=== PATIENT | female | born 1960 | race Caucasian/White ===

== ENCOUNTER 2018-09-29 16:38 | Emergency (ER) | payer BC ==
--- NOTE | 2018-09-29 18:21 | ER Document Report ---
ED Medical Screen (RME) - General Chief Complaint: Abdominal Pain Stated Complaint: SIDE PAIN Time Seen by Provider: 09/29/18 18:17 Notes: 58-year-old female patient reports onset Thursday of severe right lower quadrant abdominal pain. She states it has gotten a little bit better. Thursday it was extremely painful to move around or walk at all. She also reports an umbilical region discharge, and some nausea. She also reports a head cold and upper respiratory tract infection type symptoms. I have greeted and performed a rapid initial assessment of this patient. A comprehensive ED assessment and evaluation of the patient, analysis of test results and completion of the medical decision making process will be conducted by additional ED providers. - Related Data Allergies/Adverse Reactions: levofloxacin [From Levaquin] Allergy (Verified 09/29/18 16:40) morphine Allergy (Verified 09/29/18 16:40) Sulfa (Sulfonamide Antibiotics) Allergy (Verified 09/29/18 16:40) Past Medical History - Social History Chew tobacco use (# tins/day): No Frequency of alcohol use: None Drug Abuse: None - Past Medical History Cardiac Medical History: Reports: Hx Hypercholesterolemia Pulmonary Medical History: Reports: Hx COPD Renal/ Medical History: Denies: Hx Peritoneal Dialysis Past Surgical History: Reports: Hx Abdominal Surgery, Hx Cholecystectomy, Hx Orthopedic Surgery Physical Exam - Vital signs Vitals: Temp Pulse Resp BP Pulse Ox 98.7 F 77 18 137/85 H 97 09/29/18 16:48 09/29/18 16:48 09/29/18 16:48 09/29/18 16:48 09/29/18 16:48 Course - Vital Signs Vital signs: Temp Pulse Resp BP Pulse Ox 98.7 F 77 18 137/85 H 97 09/29/18 16:48 09/29/18 16:48 09/29/18 16:48 09/29/18 16:48 09/29/18 16:48
--- NOTE | 2018-09-29 19:28 | ER Document Report ---
ED General - General Chief Complaint: Abdominal Pain Stated Complaint: SIDE PAIN Time Seen by Provider: 09/29/18 18:17 Mode of Arrival: Ambulatory Information source: Patient, [facility] Records Notes: 58-year-old female with hypertension, COPD presents with complaint of right lower quadrant pain that started 2 days prior to arrival. Patient describes the pain as stabbing, intermittent and worse with movement. She denies any associated nausea, vomiting. Her last bowel movement was yesterday. Patient describes the bowel movement as strenuous, hard and scant. Patient has surgical history of ovarian cyst removal, cholecystectomy. Patient reports chronic chest pain, chronic shortness of breath due to tobacco use, recent illness which included nasal congestion, cough. She denies previous history of kidney stones, dysuria, hematuria, vaginal discharge. - HPI Onset: Other Onset/Duration: Persistent, Worse Quality of pain: Stabbing Severity: Moderate Pain Level: 2 Associated symptoms: Chest pain - Chronic, Productive cough, Rhinnorhea, Shortness of breath - Chronic. denies: Fever, Nausea, Vomiting Exacerbated by: Movement Relieved by: Denies Similar symptoms previously: No Recently seen / treated by doctor: No - Related Data Allergies/Adverse Reactions: levofloxacin [From Levaquin] Allergy (Verified 09/29/18 16:40) morphine Allergy (Verified 09/29/18 16:40) Sulfa (Sulfonamide Antibiotics) Allergy (Verified 09/29/18 16:40) Past Medical History - General Information source: Patient - Social History Smoking Status: Current Every Day Smoker Cigarette use (# per day): Yes - 15 Chew tobacco use (# tins/day): No Smoking Education Provided: Yes - Smoking cessation counseling was provided for 4 minutes at the bedside Frequency of alcohol use: None Drug Abuse: None Lives with: Family Family History: Reviewed & Not Pertinent Patient has suicidal ideation: No Patient has homicidal ideation: No - Past Medical History Cardiac Medical History: Reports: Hx Hypercholesterolemia Pulmonary Medical History: Reports: Hx COPD Renal/ Medical History: Denies: Hx Peritoneal Dialysis Past Surgical History: Reports: Hx Abdominal Surgery, Hx Cholecystectomy, Hx Orthopedic Surgery Review of Systems - Review of Systems Notes: REVIEW OF SYSTEMS: CONSTITUTIONAL : Denies fever, chills, or sweats. Denies weight loss, recent hospitalizations. EENT: Denies visual changes, eye pain. Denies sore throat, oral lesions, difficulty swallowing. CARDIOVASCULAR: Denies palpitations. Denies lower extremity edema. RESPIRATORY: Denies cough. Denies wheezing. GASTROINTESTINAL: Denies distention. Denies nausea, vomiting, or diarrhea. Denies blood in vomitus, stools, or per rectum. Denies black, tarry stools. Denies constipation. GENITOURINARY: Denies difficulty urinating, painful urination, frequency, blood in urine, or vaginal discharge. MUSCULOSKELETAL: Denies back or neck pain or stiffness. Denies joint pain or swelling. SKIN: Denies rash, lesions or sores. HEMATOLOGIC : Denies easy bruising or bleeding. LYMPHATIC: Denies swollen glands. NEUROLOGICAL: Denies confusion or altered mental status. Denies loss of consciousness. Denies dizziness or lightheadedness. Denies headache. Denies weakness or paralysis. Denies problems difficulty with ambulation, slurred speech. Denies sensory loss, numbness, or tingling. Denies seizures. PSYCHIATRIC: Denies anxiety or stress. Denies depression, suicidal ideation, or homicidal ideation. Denies visual or auditory hallucinations. Physical Exam - Vital signs Vitals: Temp Pulse Resp BP Pulse Ox 98.7 F 77 18 137/85 H 97 09/29/18 16:48 09/29/18 16:48 09/29/18 16:48 09/29/18 16:48 09/29/18 16:48 - Notes Notes: PHYSICAL EXAMINATION: GENERAL: Well-appearing, well-nourished and in no acute distress. HEAD: Atraumatic, normocephalic. EYES: Pupils equal round and reactive to light, extraocular movements intact, conjunctiva are normal. ENT: Nares patent, oropharynx clear without exudates. Moist mucous membranes. NECK: Normal range of motion, supple without lymphadenopathy LUNGS: Breath sounds clear to auscultation bilaterally and equal. No wheezes rales or rhonchi. HEART: Regular rate and rhythm without murmurs ABDOMEN: Tenderness to palpation in the right lower quadrant. No guarding, no rebound. No masses appreciated. Female : deferred Musculoskeletal: Normal range of motion, no pitting or edema. No cyanosis. NEUROLOGICAL: Cranial nerves grossly intact. Normal speech, normal gait. Normal sensory, motor exams PSYCH: Normal mood, normal affect. SKIN: Warm, Dry, normal turgor, no rashes or lesions noted. Course - Re-evaluation Re-evalutation: 09/30/18 03:43 Laboratory 09/29/18 09/29/18 09/29/18 19:07 19:50 19:50 WBC 6.1 RBC 4.75 Hgb 15.0 Hct 43.3 MCV 91 MCH 31.6 MCHC 34.8 RDW 14.2 H Plt Count 190 Seg Neutrophils % 46.6 Lymphocytes % 38.9 Monocytes % 9.5 Eosinophils % 4.5 Basophils % 0.5 Absolute Neutrophils 2.8 Absolute Lymphocytes 2.4 Absolute Monocytes 0.6 Absolute Eosinophils 0.3 Absolute Basophils 0.0 Sodium 139.1 Potassium 4.1 Chloride 103 Carbon Dioxide 27 Anion Gap 9 BUN 11 Creatinine 0.57 Est GFR ( Amer) > 60 Est GFR (Non-Af Amer) > 60 Glucose 91 Calcium 9.5 Total Bilirubin 0.3 Direct Bilirubin 0.2 Neonat Total Bilirubin Not Reportable Neonat Direct Bilirubin Not Reportable Neonat Indirect Bili Not Reportable AST 24 ALT 20 Alkaline Phosphatase 76 Total Protein 6.6 Albumin 4.2 Urine Color YELLOW Urine Appearance SLIGHTLY-CLOUDY Urine pH 5.0 Ur Specific [employer] [place] 1.009 Urine Protein NEGATIVE Urine Glucose (UA) NEGATIVE Urine Ketones NEGATIVE Urine Blood NEGATIVE Urine Nitrite NEGATIVE Urine Bilirubin NEGATIVE Urine Urobilinogen NEGATIVE Ur Leukocyte Esterase TRACE H Urine WBC (Auto) 4 Urine RBC (Auto) 1 Squamous Epi Cells Auto 4 Urine Mucus (Auto) RARE Urine Ascorbic Acid NEGATIVE Limited or Localized CT 09/29/18 18:20 IMPRESSION: Negative for acute intra-abdominal/pelvic process. TECHNICAL DOCUMENTATION: Quality ID # 436: Final reports with documentation of one or more dose reduction techniques (e.g., Automated exposure control, adjustment of the mA and/or kV according to patient size, use of iterative reconstruction technique) copyright 2011 [employer]- All Rights Reserved Temp Pulse Resp BP Pulse Ox 98.5 F 78 18 140/0 H 98 09/29/18 21:30 09/29/18 21:30 09/29/18 21:30 09/29/18 21:30 09/29/18 21:30 58-year-old female with hypertension, COPD presents with complaint of right lower quadrant pain that started 2 days prior to arrival. Patient describes the pain as stabbing, intermittent and worse with movement. She denies any associated nausea, vomiting. Her last bowel movement was yesterday. Patient describes the bowel movement as strenuous, hard and scant. Patient has surgical history of ovarian cyst removal, cholecystectomy. Vital signs reviewed and within normal limits upon arrival. Patient does not appear toxic or dehydrated. She is in no acute distress. Previous medical records and nursing notes reviewed. CBC, CMP, urinalysis are unremarkable. CT of the abdomen and pelvis show no evidence of urolithiasis, appendicitis, bowel obstruction but does show a moderate amount of stool burden. Patient provided mag citrate, Zofran. Patient was evaluated and treated as appropriate for the patient's presenting symptoms and complaint, with consideration of any critical or life threatening conditions that may be associated with their obtained history and exam as noted above. All results were discussed with patient. Patient provided the opportunity to ask questions, and express concerns. Patient was educated on treatments based on their presumed diagnosis as noted above. At this time we will discharge the patient with return precautions and follow-up recommendations. Verbal discharge instructions given a the bedside. Medication warnings reviewed. Patient is in agreement with this plan and has verbalized understanding of return precautions. After careful consideration I feel that that patient can be safely discharged from the emergency department, they were advised to followup with a primary care physician in 2-3 days. Dictation on this chart was performed using voice recognition software and may result in unintended grammatical, spelling, syntax or errors. 09/30/18 03:44 - Vital Signs Vital signs: Temp Pulse Resp BP Pulse Ox 98.5 F 78 18 140/0 H 98 09/29/18 21:30 09/29/18 21:30 09/29/18 21:30 09/29/18 21:30 09/29/18 21:30 - Laboratory Result Diagrams: 09/29/18 19:50 09/29/18 19:50 Laboratory results interpreted by me: 09/29/18 09/29/18 19:07 19:50 RDW 14.2 H Ur Leukocyte Esterase TRACE H - Diagnostic Test Radiology reviewed: Image reviewed, Reports reviewed Discharge - Discharge Clinical Impression: Right lower quadrant abdominal pain, Elevated blood pressure reading Constipation Qualifiers: Constipation type: unspecified constipation type Qualified Code(s): K59.00 - Constipation, unspecified Condition: Good Disposition: HOME, SELF-CARE Instructions: Abdominal Pain ([facility]), Bulk Laxatives, Constipation ([facility]), Observation for Appendicitis ([facility]) Prescriptions: Polyethylene Glycol 3350 [Miralax Powder 17 gm/Packet] 1 packet PO DAILY #10 pkg Forms: Return to Work
[2018-09-29 19:41] LABS: APPEARANCE,URINE SLIGHTLY-CLOUDY; BILIRUBIN,URINE NEGATIVE (NEGATIVE); COLOR,URINE YELLOW; GLUCOSE, URINE NEGATIVE (NEGATIVE); KETONES,URINE NEGATIVE (NEGATIVE); LEUKOCYTE ESTERASE,URINE TRACE (NEGATIVE); NITRITE,URINE NEGATIVE (NEGATIVE); PROTEIN,URINE NEGATIVE (NEGATIVE); URINE SPECIFIC GRAVITY 1.009; UROBILINOGEN,URINE NEGATIVE mg/dL (<2.0)
[2018-09-29 20:05] LABS: ABSOLUTE EOSINOPHILS # (AUTO) 0.3 10^3/uL (0.0-0.6); ABSOLUTE LYMPHOCYTES (AUTO) 2.4 10^3/uL (0.5-4.7); ABSOLUTE MONOCYTES (AUTO) 0.6 10^3/uL (0.1-1.4); ABSOLUTE NEUT (AUTO) 2.8 10^3/uL (1.7-8.2); BASOPHILS % (AUTO) 0.5 % (0-2); EOSINOPHILS % (AUTO) 4.5 % (0-6); HEMATOCRIT 43.3 % (36.0-47.0); LYMPHOCYTES % (AUTO) 38.9 % (13-45); MEAN CORPUSCULAR HEMOGLOBIN 31.6 pg (27.0-33.4); MEAN CORPUSCULAR HGB CONC 34.8 g/dL (32.0-36.0); MEAN CORPUSCULAR VOLUME 91 fl (80-97); MONOCYTES % (AUTO) 9.5 % (3-13); PLATELET COUNT 190 10^3/uL (150-450); RED BLOOD COUNT 4.75 10^6/uL (3.72-5.28); RED CELL DISTRIBUTION WIDTH 14.2 % (11.5-14.0); SEGMENTED NEUTROPHILS % (AUTO) 46.6 % (42-78); TOTAL CELLS COUNTED % (AUTO) 100 %; WHITE BLOOD COUNT 6.1 10^3/uL (4.0-10.5)
[2018-09-29] MEDS ORDERED: KETOROLAC TROMETHAMINE INJ/PF 30 MG/1 ML SDV IV ONE (20:12)
--- NOTE | 2018-09-29 20:27 | RADIOLOGY REPORT (SQ) ---
EXAM DESCRIPTION: CT ABDOMEN WITHOUT IV CONTRAST COMPLETED DATE/TME: 09/29/2018 18:20 CLINICAL HISTORY: 58 years, Female, Right lower quadrant abdominal pain COMPARISON: None. TECHNIQUE: 336 Images stored on PACS. All CT scanners at this facility use dose modulation, iterative reconstruction, and/or weight based dosing when appropriate to reduce radiation dose to as low as reasonably achievable (ALARA). [facility]: Dose Right [facility]: CareDose [facility]: Dose Right [facility]: Teradose 4D [facility]: [employer] LIMITATIONS: None. FINDINGS: Limited evaluation of the lung bases is unremarkable. Osseous structures are grossly intact. The visualized liver, spleen, adrenal glands, pancreas are unremarkable. Status post cholecystectomy. Urinary bladder is not distended, limiting its evaluation. Normal appendix. No gross evidence for bowel obstruction. Negative for urinary tract calculus or hydronephrosis. Probable extrarenal pelves bilaterally. Moderate stool throughout colon. Moderate atheromatous change. IMPRESSION: Negative for acute intra-abdominal/pelvic process. TECHNICAL DOCUMENTATION: Quality ID # 436: Final reports with documentation of one or more dose reduction techniques (e.g., Automated exposure control, adjustment of the mA and/or kV according to patient size, use of iterative reconstruction technique) copyright 2010 [employer]- All Rights Reserved
[2018-09-29 20:28] LABS: ALANINE AMINOTRANSFERASE 20 U/L (9-52); ALBUMIN 4.2 g/dL (3.5-5.0); ALKALINE PHOSPHATASE 76 U/L (38-126); ANION GAP 9 (5-19); ASPARTATE AMINO TRANSFERASE 24 U/L (14-36); BILIRUBIN,DIRECT 0.2 mg/dL (0.0-0.4); BILIRUBIN,TOTAL 0.3 mg/dL (0.2-1.3); BLOOD UREA NITROGEN 11 mg/dL (7-20); CALCIUM 9.5 mg/dL (8.4-10.2); CARBON DIOXIDE 27 mmol/L (22-30); CHLORIDE 103 mmol/L (98-107); GLUCOSE 91 mg/dL (75-110); POTASSIUM 4.1 mmol/L (3.6-5.0); SODIUM 139.1 mmol/L (137-145); TOTAL PROTEIN 6.6 g/dL (6.3-8.2)
[2018-09-29] MEDS ORDERED: MAGNESIUM CITRATE 296 ML BOTTLE PO ONE (21:12)
[2018-09-29 21:32] VITALS: BP 140/0
== END 2018-09-29 20:28 | disposition home or self-care (01) ==
LOC: ER 16:38
DX: K59.00 Constipation, unspecified (principal); R10.31 Right lower quadrant pain; I10 Essential (primary) hypertension; J34.89 Other specified disorders of nose and nasal sinuses; R09.81 Nasal congestion; R07.9 Chest pain, unspecified; J44.9 Chronic obstructive pulmonary disease, unspecified; F17.210 Nicotine dependence, cigarettes, uncomplicated; R05 Cough; R06.02 Shortness of breath; Z88.2 Allergy status to sulfonamides; Z90.49 Acquired absence of other specified parts of digestive tract; Z87.42 Personal history of other diseases of the female genital tract; Z88.1 Allergy status to other antibiotic agents; Z88.5 Allergy status to narcotic agent
CPT/HCPCS: 99284; 96374; 36415; 85025; 80053; 81001; 76380; J3490; J1885

== ENCOUNTER 2019-02-15 08:30 | Observation (INO) | payer BC ==
[2019-02-15] MEDS ORDERED: ASPIRIN 81 MG TABLET, CHEWABLE PO ONE (10:02)
--- NOTE | 2019-02-15 10:06 | ER Document Report ---
ED Cardiac - General Chief Complaint: Chest Pain Stated Complaint: CHEST PAIN Time Seen by Provider: 02/15/19 09:00 Notes: 58-year-old female patient, smoker to the emergency department chief complaint of chest pain radiating to her back. Patient states that yesterday she debate developed a achiness in her back and radiated to the front of her chest. Describes it as a fullness in her chest. Had some nausea associated with that as well. No vomiting. This has persisted today. Patient states that she feels completely wiped out. No prior history of blood clots or DVTs or pulmonary rhythm. Strong family history of heart disease. TRAVEL OUTSIDE OF THE [place] IN LAST 30 DAYS: No - HPI Patient complains to provider of: Chest pain, Chest tightness Was the onset of pain: Gradual Chest pain location: Substernal, Back Quality of pain: Intermittent Chest pain radiation location: Back Severity now: Moderate Severity at worst: Moderate Pain level currently: 3 - Related Data Allergies/Adverse Reactions: levofloxacin [From Levaquin] Allergy (Verified 02/15/19 08:36) morphine Allergy (Verified 02/15/19 08:36) Sulfa (Sulfonamide Antibiotics) Allergy (Verified 02/15/19 08:36) Past Medical History - General Information source: Patient - Social History Smoking Status: Current Every Day Smoker Frequency of alcohol use: None Drug Abuse: Marijuana Lives with: Family Family History: Reviewed & Not Pertinent Patient has suicidal ideation: No Patient has homicidal ideation: No - Past Medical History Cardiac Medical History: Reports: Hx Hypercholesterolemia Pulmonary Medical History: Reports: Hx COPD Renal/ Medical History: Denies: Hx Peritoneal Dialysis Past Surgical History: Reports: Hx Abdominal Surgery, Hx Cholecystectomy, Hx Orthopedic Surgery Review of Systems - Review of Systems Notes: Constitutional: denies: Chills, Diaphoresis, Fever, Malaise, Weakness EENT: denies: Eye discharge, Blurred vision, Tearing, Double vision, Nose congestion, Nose discharge, Throat swelling, Mouth pain Cardiovascular: denies: Palpitations, Heart racing, Orthopnea, Dyspnea, +Chest pain Respiratory: denies: Cough, Hurts to breathe, Wheezing, Shortness of breath Gastrointestinal: denies: Abdominal pain, Diarrhea, +Nausea, -Vomiting, Black stools, bright red blood in stool Genitourinary: denies: Burning, Dysuria, Discharge, Frequency, Flank pain, Hematuria Musculoskeletal: denies: Joint pain, Joint swelling, Muscle pain, Muscle stiffness, +back pain Hematologic/Lymphatic: denies: Anemia, Easy bleeding, Easy bruising, Blood clots Neurological/Psychological: denies: Confusion, Dementia, Depression, Loss of consciousness Skin: No lesions, no masses, no skin breakdown, no abscesses Physical Exam - Vital signs Vitals: Temp Pulse Resp BP Pulse Ox 98.1 F 69 18 151/86 H 98 02/15/19 08:51 02/15/19 08:51 02/15/19 08:51 02/15/19 08:51 02/15/19 08:51 Interpretation: Normal - General General appearance: Appears well, Alert - HEENT Head: Normocephalic, Atraumatic Eyes: Normal Pupils: PERRL - Respiratory Respiratory status: No respiratory distress Chest status: Nontender Breath sounds: Normal Chest palpation: Normal - Cardiovascular Rhythm: Regular Heart sounds: Normal auscultation Murmur: No - Abdominal Inspection: Normal Distension: No distension Bowel sounds: Normal Tenderness: Nontender Organomegaly: No organomegaly - Back Back: Normal, Nontender - Extremities General upper extremity: Normal inspection, Nontender, Normal color, Normal ROM, Normal temperature General lower extremity: Normal inspection, Nontender, Normal color, Normal ROM, Normal temperature, Normal weight bearing. No: Alyssa's sign - Neurological Neuro grossly intact: Yes Cognition: Normal Orientation: AAOx4 Anthony Coma Scale Eye Opening: Spontaneous Anthony Coma Scale Verbal: Oriented Anthony Coma Scale Motor: Obeys Commands [place] Coma Scale Total: 15 Speech: Normal Motor strength normal: LUE, RUE, LLE, RLE Sensory: Normal - Psychological Associated symptoms: Normal affect, Normal mood - Skin Skin Temperature: Warm Skin Moisture: Dry Skin Color: Normal Course - Re-evaluation Re-evalutation: 02/15/19 12:22 Laboratory 02/15/19 02/15/19 02/15/19 10:21 10:21 10:21 WBC 6.7 RBC 5.01 Hgb 15.4 Hct 44.6 MCV 89 MCH 30.7 MCHC 34.4 RDW 13.9 Plt Count 220 Seg Neutrophils % 48.7 Lymphocytes % 41.2 Monocytes % 6.3 Eosinophils % 3.1 Basophils % 0.7 Absolute Neutrophils 3.3 Absolute Lymphocytes 2.7 Absolute Monocytes 0.4 Absolute Eosinophils 0.2 Absolute Basophils 0.0 Sodium Cancelled Potassium Cancelled Chloride Cancelled Carbon Dioxide Cancelled Anion Gap Cancelled BUN Cancelled Creatinine Cancelled Est GFR ( Amer) Cancelled Est GFR (Non-Af Amer) Cancelled Glucose Cancelled Calcium Cancelled Total Bilirubin Cancelled Direct Bilirubin Cancelled Neonat Total Bilirubin Cancelled Neonat Direct Bilirubin Cancelled Neonat Indirect Bili Cancelled AST Cancelled ALT Cancelled Alkaline Phosphatase Cancelled Creatine Kinase Cancelled CK-MB (CK-2) Cancelled Troponin I Cancelled Total Protein Cancelled Albumin Cancelled 02/15/19 11:40 WBC RBC Hgb Hct MCV MCH MCHC RDW Plt Count Seg Neutrophils % Lymphocytes % Monocytes % Eosinophils % Basophils % Absolute Neutrophils Absolute Lymphocytes Absolute Monocytes Absolute Eosinophils Absolute Basophils Sodium 143.5 Potassium 4.1 Chloride 106 Carbon Dioxide 28 Anion Gap 10 BUN 11 Creatinine 0.60 Est GFR ( Amer) > 60 Est GFR (Non-Af Amer) > 60 Glucose 99 Calcium 9.9 Total Bilirubin 0.4 Direct Bilirubin 0.2 Neonat Total Bilirubin Not Reportable Neonat Direct Bilirubin Not Reportable Neonat Indirect Bili Not Reportable AST 24 ALT 27 Alkaline Phosphatase 84 Creatine Kinase 35 CK-MB (CK-2) Troponin I Total Protein 7.1 Albumin 4.0 Chest X-Ray 02/15/19 10:02 IMPRESSION: NO ACUTE RADIOGRAPHIC FINDING IN THE CHEST. 02/15/19 12:25 This is a 58-year-old female patient with a heart score of 4 complaining of chest tightness that radiates to her back. She is a smoker, hypertensive, h yperlipidemia with positive family history. With a heart score for she would more likely deserve a rule out. Will consult with the hospitalist at this time for repeat evaluation and admit 02/15/19 12:57 - Vital Signs Vital signs: Temp Pulse Resp BP Pulse Ox 98.1 F 69 13 134/76 H 96 02/15/19 08:51 02/15/19 08:51 02/15/19 12:01 02/15/19 12:01 02/15/19 12:01 - Laboratory Result Diagrams: 02/15/19 10:21 02/15/19 11:40 - EKG Interpretation by [place] EKG shows normal: Sinus rhythm, [place], Intervals, QRS Complexes, ST-T Waves Discharge - Discharge Clinical Impression: Chest pain Qualifiers: Chest pain type: unspecified Qualified Code(s): R07.9 - Chest pain, unspecified Condition: Good Disposition: ADMITTED OBSERVATION Admitting Provider: Cortney (Hospitalist) Unit Admitted: Telemetry
[2019-02-15 10:31] LABS: ABSOLUTE EOSINOPHILS # (AUTO) 0.2 10^3/uL (0.0-0.6); ABSOLUTE LYMPHOCYTES (AUTO) 2.7 10^3/uL (0.5-4.7); ABSOLUTE MONOCYTES (AUTO) 0.4 10^3/uL (0.1-1.4); ABSOLUTE NEUT (AUTO) 3.3 10^3/uL (1.7-8.2); BASOPHILS % (AUTO) 0.7 % (0-2); EOSINOPHILS % (AUTO) 3.1 % (0-6); HEMATOCRIT 44.6 % (36.0-47.0); HEMOGLOBIN 15.4 g/dL (12.0-15.5); LYMPHOCYTES % (AUTO) 41.2 % (13-45); MEAN CORPUSCULAR HEMOGLOBIN 30.7 pg (27.0-33.4); MEAN CORPUSCULAR HGB CONC 34.4 g/dL (32.0-36.0); MEAN CORPUSCULAR VOLUME 89 fl (80-97); MONOCYTES % (AUTO) 6.3 % (3-13); PLATELET COUNT 220 10^3/uL (150-450); RED BLOOD COUNT 5.01 10^6/uL (3.72-5.28); RED CELL DISTRIBUTION WIDTH 13.9 % (11.5-14.0); SEGMENTED NEUTROPHILS % (AUTO) 48.7 % (42-78); TOTAL CELLS COUNTED % (AUTO) 100 %; WHITE BLOOD COUNT 6.7 10^3/uL (4.0-10.5)
--- NOTE | 2019-02-15 10:51 | RADIOLOGY REPORT (SQ) ---
EXAM DESCRIPTION: CHEST SINGLE VIEW COMPLETED DATE/TIME: 02/15/2019 10:37 am REASON FOR STUDY: chest pain COMPARISON: None. EXAM PARAMETERS: NUMBER OF VIEWS: One view. TECHNIQUE: Single frontal radiographic view of the chest acquired. RADIATION DOSE: NA LIMITATIONS: None. FINDINGS: LUNGS AND PLEURA: No opacities, masses or pneumothorax. No pleural effusion. MEDIASTINUM AND HILAR STRUCTURES: No masses. Contour normal. HEART AND VASCULAR STRUCTURES: Heart normal in size. Normal vasculature. BONES: No acute findings. HARDWARE: None in the chest. OTHER: No other significant finding. IMPRESSION: NO ACUTE RADIOGRAPHIC FINDING IN THE CHEST. TECHNICAL DOCUMENTATION: JOB ID: [id number] [email or web address]- All Rights Reserved Reading location - IP/workstation name: [email or web address]
[2019-02-15] MEDS ORDERED: ASPIRIN 81 MG TABLET, CHEWABLE ONE (11:50)
[2019-02-15] MEDS ORDERED: KETOROLAC TROMETHAMINE INJ/PF 30 MG/1 ML SDV IV ONE (11:52)
[2019-02-15 12:07] LABS: ALANINE AMINOTRANSFERASE 27 U/L (9-52); ALKALINE PHOSPHATASE 84 U/L (38-126); ANION GAP 10 (5-19); ASPARTATE AMINO TRANSFERASE 24 U/L (14-36); BILIRUBIN,DIRECT 0.2 mg/dL (0.0-0.4); BILIRUBIN,TOTAL 0.4 mg/dL (0.2-1.3); BLOOD UREA NITROGEN 11 mg/dL (7-20); CALCIUM 9.9 mg/dL (8.4-10.2); CARBON DIOXIDE 28 mmol/L (22-30); CHLORIDE 106 mmol/L (98-107); CREATINE KINASE 35 U/L (30-135); GLUCOSE 99 mg/dL (75-110); POTASSIUM 4.1 mmol/L (3.6-5.0); SODIUM 143.5 mmol/L (137-145); TOTAL PROTEIN 7.1 g/dL (6.3-8.2)
[2019-02-15 12:19] LABS: CREATINE KINASE MB 0.48 ng/mL (<4.55)
[2019-02-15 12:26] LABS: TROPONIN I < 0.012 ng/mL
--- NOTE | 2019-02-15 12:47 | EKG REPORT ---
SEVERITY:- ABNORMAL ECG - SINUS RHYTHM FIRST DEGREE AV BLOCK BORDERLINE LEFT AXIS DEVIATION BORDERLINE R WAVE PROGRESSION, ANTERIOR LEADS : Confirmed by: Vivek Webb MD 15-Feb-2019 12:46:28
[2019-02-15] MEDS ORDERED: ONDANSETRON 4 MG TAB.RAPDIS PO PRN (14:00)
[2019-02-15] MEDS ORDERED: ACETAMINOPHEN SOLN 325 MG/10.15 ML UDCUP PO PRN (14:50)
[2019-02-15] MEDS ORDERED: IBUPROFEN 800 MG TABLET PO ONE (14:50)
[2019-02-15] MEDS ORDERED: MORPHINE SULFATE 10 MG/ML INJ IV PRN (14:52)
[2019-02-15] MEDS ORDERED: NITROGLYCERIN 0.4 MG/TAB 25 TAB/BOTTLE SL PRN (14:53)
--- NOTE | 2019-02-15 15:08 | PDOC H&P ---
History of Present Illness Admission Date/PCP: 02/15/19 13:28 Patient complains of: CHEST PAIN History of Present Illness: FELIPE RUELAS is a 58 year old female with a PMH of HLD, hypothyroidism and 14-prgb-lxhw smoking history. She presented to [facility] for a 3-day history of upper back pain radiating to her chest. 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 On Thursday night, she woke up in the middle of the night with severe mid scapular back pain radiating to her midsternal chest. Denies of pain or paresthesia radiating to her arms or jaw. Patient states the pain is relatively constant, but exacerbated with inhalation and sudden movement. She states the pain wakes her up at night, specifically when she attempts to change position in the bed. Upon admission to the emergency department, the patient's vital signs are relatively within normal limits. EKG demonstrates NSR, first-degree AV block, no acute infarction or ischemia. Laboratory studies are relatively benign, this includes CBC, chemistry and cardiac enzymes. Chest x-ray is normal, no cardiopulmonary pathology. Upon evaluation, lungs are clear to auscultation. S1-S2. The patient experiences sharp, severe pain reproducible in the mid scapular region. She states her chest pain is not reproducible with palpation, however is exacerbated with inhalation. The source of the patient's pain is likely musculoskeletal, however, due to her risk factors she will be admitted to the hospitalist service for chest pain observation. Past Medical History Cardiac Medical History: Reports: Hyperlipidema Pulmonary Medical History: Reports: Chronic Obstructive Pulmonary Disease (COPD) Endocrine Medical History: Reports: Hypothyroidism Past Surgical History Past Surgical History: Reports: Cholecystectomy, Orthopedic Surgery Social History Information Source: Patient Lives with: Family, Spouse/Significant other Smoking Status: Current Every Day Smoker Number of Years Smokin Frequency of Alcohol Use: Rare Hx Recreational Drug Use: Yes Drugs: Marijuana - DAILY Hx Prescription Drug Abuse: No - Advance Directive Resuscitation Status: Full Code Family History Family History: Malignancy - Father - lymphoma Parental Family History Reviewed: Yes Children Family History Reviewed: NA Sibling(s) Family History Reviewed.: NA Medication/Allergy Home Medications: No Home Medications 02/15/19 Allergies/Adverse Reactions: levofloxacin [From Levaquin] Allergy (Verified 02/15/19 08:36) morphine Allergy (Verified 02/15/19 08:36) Sulfa (Sulfonamide Antibiotics) Allergy (Verified 02/15/19 08:36) Review of Systems Constitutional: PRESENT: headache(s) Eyes: ABSENT: visual disturbances Ears: ABSENT: hearing changes Nose, Mouth, and Throat: PRESENT: vertigo Cardiovascular: PRESENT: chest pain. ABSENT: dyspnea on exertion, palpitations Respiratory: PRESENT: cough, dyspnea Gastrointestinal: ABSENT: abdominal pain Genitourinary: ABSENT: difficulty urinating, dysuria Musculoskeletal: PRESENT: back pain - mid-scapular pain Neurological: ABSENT: abnormal gait, confusion Psychiatric: PRESENT: anxiety - due to familial stress - grandbaby in NICU @ [place] Physical Exam Vital Signs: Temp Pulse Resp BP Pulse Ox 98.1 F 69 19 140/83 H 95 02/15/19 08:51 02/15/19 08:51 02/15/19 14:02 02/15/19 14:02 02/15/19 14:02 Intake & Output 02/14/19 02/15/19 02/16/19 06:59 06:59 06:59 Weight 93.7 kg General appearance: PRESENT: no acute distress, obese Head exam: PRESENT: atraumatic, normocephalic Eye exam: PRESENT: conjunctiva pink, EOMI, PERRLA. ABSENT: scleral icterus Ear exam: PRESENT: normal external ear exam Mouth exam: PRESENT: moist, tongue midline Teeth exam: PRESENT: poor dentation Neck exam: ABSENT: carotid bruit, JVD, lymphadenopathy, thyromegaly Respiratory exam: PRESENT: clear to auscultation kathrin, symmetrical, unlabored. A BSENT: rales, rhonchi, wheezes Cardiovascular exam: PRESENT: RRR. ABSENT: diastolic murmur, rubs, systolic murmur Pulses: PRESENT: normal radial pulses, normal dorsalis pedis pul Vascular exam: PRESENT: normal capillary refill GI/Abdominal exam: PRESENT: normal bowel sounds, soft. ABSENT: distended, guarding, mass, organolmegaly, rebound, tenderness Rectal exam: PRESENT: deferred Extremities exam: PRESENT: full ROM. ABSENT: calf tenderness, clubbing, pedal edema Neurological exam: PRESENT: alert, awake, oriented to person, oriented to place, oriented to time, oriented to situation Psychiatric exam: PRESENT: appropriate affect, normal mood. ABSENT: homicidal ideation, suicidal ideation Skin exam: PRESENT: dry, intact, warm. ABSENT: cyanosis, rash Results Laboratory Results: 02/15/19 10:21 02/15/19 11:40 02/15/19 02/15/19 02/15/19 10:21 10:21 11:40 WBC 6.7 RBC 5.01 Hgb 15.4 Hct 44.6 MCV 89 MCH 30.7 MCHC 34.4 RDW 13.9 Plt Count 220 Seg Neutrophils % 48.7 Lymphocytes % 41.2 Monocytes % 6.3 Eosinophils % 3.1 Basophils % 0.7 Absolute Neutrophils 3.3 Absolute Lymphocytes 2.7 Absolute Monocytes 0.4 Absolute Eosinophils 0.2 Absolute Basophils 0.0 Sodium Cancelled 143.5 Potassium Cancelled 4.1 Chloride Cancelled 106 Carbon Dioxide Cancelled 28 Anion Gap Cancelled 10 BUN Cancelled 11 Creatinine Cancelled 0.60 Est GFR ( Amer) Cancelled > 60 Est GFR (Non-Af Amer) Cancelled > 60 Glucose Cancelled 99 Calcium Cancelled 9.9 Total Bilirubin Cancelled 0.4 AST Cancelled 24 ALT Cancelled 27 Alkaline Phosphatase Cancelled 84 Total Protein Cancelled 7.1 Albumin Cancelled 4.0 02/15/19 02/15/19 02/15/19 10:21 10:21 11:40 Creatine Kinase Cancelled 35 CK-MB (CK-2) Cancelled Troponin I Cancelled 02/15/19 02/15/19 11:40 13:51 Creatine Kinase CK-MB (CK-2) 0.48 Troponin I < 0.012 < 0.012 Impressions: Chest X-Ray 02/15/19 10:02 IMPRESSION: NO ACUTE RADIOGRAPHIC FINDING IN THE CHEST. Status: Imported from PACS Assessment and Plan - Diagnosis (1) Chest pain Qualifiers: Chest pain type: unspecified Qualified Code(s): R07.9 - Chest pain, unspecified Is this a current diagnosis for this admission?: Yes Plan: Midsternal chest pain, radiating from her mid scapular pain Endorses pain with inhalation EKG and chest xray WNL Possibly musculoskeletal pain due to vigorous physical activity Plan for CT chest to evaluate for PE EKG in a.m. Daily baby aspirin PRN Tylenol, Motrin for pain PRN SL Nitro 0.4mg q5min x 15min for chest pain PRN morphine for severe (5/5) pain (2) HLD (hyperlipidemia) Is this a current diagnosis for this admission?: Yes Plan: Patient endorses history of HLD Currently not taking any medications Lipid panel with a.m. labs (3) Hypothyroid Is this a current diagnosis for this admission?: Yes Plan: Patient endorses history of hypothyroidism Currently is not taking any medications TSH with a.m. labs (4) Tobacco abuse Is this a current diagnosis for this admission?: Yes Plan: 03-mhmw-drqw smoking history Patient endorses she currently smokes half a pack per day of cigarettes, additionally admits to daily marijuana use (when available) Will offer nicotine patch - Time Time Spent with patient: 15-24 minutes Medications reviewed and adjusted accordingly: Yes Anticipated discharge: Home Within: within 24 hours - Inpatient Certification Based on my medical assessment, after consideration of the patient's comorbidities, presenting symptoms, or acuity I expect that the services needed warrant INPATIENT care.: Yes I certify that my determination is in accordance with my understanding of Medicare's requirements for reasonable and necessary INPATIENT services [42 CFR 412.3e].: Yes Medical Necessity: Need For Continuous Telemetry Monitoring, Risk of Complication if Not Cared For in Hospital
--- NOTE | 2019-02-15 16:21 | RADIOLOGY REPORT (SQ) ---
EXAM DESCRIPTION: CTA CHEST COMPLETED DATE/TIME: 02/15/2019 3:50 pm REASON FOR STUDY: eval for PE COMPARISON: AP chest 02/15/2019 CT abdomen pelvis 09/29/2018 TECHNIQUE: CT scan of the chest performed using helical scanning technique with dynamic intravenous contrast injection. Images reviewed with lung, soft tissue and bone windows. Reconstructed coronal and sagittal MPR images reviewed. Additional 3 dimensional post-processing performed to develop Maximal Intensity Projection images (OR P). All images stored on PACS. All CT scanners at this facility use dose modulation, iterative reconstruction, and/or weight based d osing when appropriate to reduce radiation dose to as low as reasonably achievable (ALARA). [facility]: Dose Right [facility]: CareDose [facility]: Dose Right [facility]: Teradose 4D [facility]: Greenpie CONTRAST TYPE AND DOSE: contrast/concentration: Isovue 350.00 mg/ml; Total Contrast Delivered: 59.0 ml; Total Saline Delivered: 80.0 ml Contrast bolus optimized for the pulmonary arteries and thoracic aorta. RENAL FUNCTION: GFR > 60. RADIATION DOSE: CT Rad equipment meets quality standard of care and radiation dose reduction techniq ues were employed. CTDIvol: 9.4 - 15.4 mGy. DLP: 550 mGy-cm. . LIMITATIONS: None. FINDINGS: LUNGS AND PLEURA: No masses, infiltrates, or pneumothorax. No pleural effusions or pleura l calcifications. AORTA AND GREAT VESSELS: No aneurysm or dissection. HEART: No pericardial effusion. No significant coronary artery calcifications. PULMONARY ARTERIES: No emboli visualized in the main pulmonary arteries or the segmental branches. HILAR AND MEDIASTINAL STRUCTURES: No identified masses or abnormal nodes. Small hiatal hernia HARDWARE: None in the chest. UPPER ABDOMEN: No significant findings. Post cholecystectomy. THYROID AND OTHER SOFT TISSUES: No masses. No adenopathy. BONES: No acute or significant finding. 3D MIPS: Confirm above findings. OTHER: No other significant finding. IMPRESSION: NORMAL CTA OF THE CHEST. NO PULMONARY EMBOLI. COMMENT: Quality ID # [id number]: Final reports with documentation of one or more dose reduction techniques (e.g., Automated exposure control, adjustment of the mA and/or kV according to patient size, use of iterative reconstruction technique) TECHNICAL DOCUMENTATION: JOB ID: [id number] [employer]- All Rights Reserved Reading location - IP/workstation name: [email or web address]
[2019-02-15 19:55] LABS: CREATINE KINASE MB 0.62 ng/mL (<4.55)
[2019-02-15 19:58] LABS: TROPONIN I < 0.012 ng/mL
[2019-02-15] MEDS: FAMOTIDINE 20 MG TABLET PO SCH (21:56)
[2019-02-15] MEDS: IBUPROFEN 800 MG TABLET PO PRN (21:58)
[2019-02-16 01:59] LABS: TROPONIN I < 0.012 ng/mL
[2019-02-16 06:56] LABS: HEMATOCRIT 42.8 % (36.0-47.0); HEMOGLOBIN 14.4 g/dL (12.0-15.5); MEAN CORPUSCULAR HEMOGLOBIN 30.1 pg (27.0-33.4); MEAN CORPUSCULAR HGB CONC 33.7 g/dL (32.0-36.0); MEAN CORPUSCULAR VOLUME 89 fl (80-97); PLATELET COUNT 210 10^3/uL (150-450); RED CELL DISTRIBUTION WIDTH 13.9 % (11.5-14.0); WHITE BLOOD COUNT 6.1 10^3/uL (4.0-10.5)
[2019-02-16 07:16] LABS: ALANINE AMINOTRANSFERASE 27 U/L (9-52); ALBUMIN 3.7 g/dL (3.5-5.0); ALKALINE PHOSPHATASE 81 U/L (38-126); ANION GAP 8 (5-19); ASPARTATE AMINO TRANSFERASE 26 U/L (14-36); BILIRUBIN,DIRECT 0.3 mg/dL (0.0-0.4); BILIRUBIN,TOTAL 0.4 mg/dL (0.2-1.3); BLOOD UREA NITROGEN 12 mg/dL (7-20); CALCIUM 9.9 mg/dL (8.4-10.2); CARBON DIOXIDE 26 mmol/L (22-30); CHLORIDE 107 mmol/L (98-107); CHOLESTEROL 250.33 mg/dL (0-200); GLUCOSE 105 mg/dL (75-110); POTASSIUM 4.5 mmol/L (3.6-5.0); SODIUM 140.7 mmol/L (137-145); TOTAL PROTEIN 6.4 g/dL (6.3-8.2); TRIGLYCERIDES 107 mg/dL (<150)
[2019-02-16 07:26] LABS: CREATINE KINASE MB 0.99 ng/mL (<4.55); DIRECT LDL 161 mg/dL (<100)
[2019-02-16 07:28] LABS: TROPONIN I < 0.012 ng/mL
--- NOTE | 2019-02-16 07:36 | EKG REPORT ---
SEVERITY:- ABNORMAL ECG - SINUS RHYTHM FIRST DEGREE AV BLOCK BORDERLINE LEFT AXIS DEVIATION CONSIDER ANTERIOR INFARCT : Confirmed by: Vivek Webb MD 16-Feb-2019 07:35:42
[2019-02-16] MEDS: IBUPROFEN 800 MG TABLET PO PRN (07:41)
[2019-02-16] MEDS ORDERED: ENOXAPARIN SODIUM INJ 30 MG/0.3 ML DISP.SYRIN SUBCUT SCH (10:00)
[2019-02-16] MEDS ORDERED: ASPIRIN 81 MG TABLET, CHEWABLE PO SCH (10:00)
[2019-02-16] MEDS: FAMOTIDINE 20 MG TABLET PO SCH (10:06)
[2019-02-16 12:52] VITALS: BP 131/76
== END 2019-02-16 13:30 | disposition home or self-care (01) ==
LOC: ER 08:30 → EH 13:28 → 4N 15:15
PROVIDERS: ADMIT Hospitalist; ATTEND Hospitalist
DX: R07.89 Other chest pain (principal); E78.5 Hyperlipidemia, unspecified; E03.9 Hypothyroidism, unspecified; M54.9 Dorsalgia, unspecified; I44.0 Atrioventricular block, first degree; J44.9 Chronic obstructive pulmonary disease, unspecified; F12.90 Cannabis use, unspecified, uncomplicated; F43.0 Acute stress reaction; E66.9 Obesity, unspecified; F17.210 Nicotine dependence, cigarettes, uncomplicated; I10 Essential (primary) hypertension; F41.1 Generalized anxiety disorder; Z88.6 Allergy status to analgesic agent; Z88.3 Allergy status to other anti-infective agents; Z88.2 Allergy status to sulfonamides
CPT/HCPCS: 93005 ×2; 99285; 96374; 36415 ×2; 82553 ×2; 82550 ×2; 83735; 84100; 84443; 85025; 85027; 80053 ×2; 84484 ×2; 80061; 83880; 71045; 71275; 93010 ×2; G0378 ×2; J1885

== ENCOUNTER → 2019-02-21 | Outpatient (CLI) | payer BC | LOC: OD 16:10 | PROVIDERS: ATTEND Internal Medicine | DX: K85.90 Acute pancreatitis without necrosis or infection, unspecified (principal); R10.9 Unspecified abdominal pain | CPT/HCPCS: 36415; 82150; 83690 ==

== ENCOUNTER → 2019-04-14 | Outpatient (CLI) | payer BC | LOC: OD 08:43 | PROVIDERS: ATTEND Internal Medicine | DX: E03.9 Hypothyroidism, unspecified (principal) | CPT/HCPCS: 36415; 84443 ==

== ENCOUNTER → 2019-04-28 | Outpatient (CLI) | payer BC ==
[2019-04-28 15:03] LABS: ABSOLUTE BASOPHILS # (AUTO) 0.1 10^3/uL (0.0-0.2); ABSOLUTE EOSINOPHILS # (AUTO) 0.2 10^3/uL (0.0-0.6); ABSOLUTE LYMPHOCYTES (AUTO) 2.8 10^3/uL (0.5-4.7); ABSOLUTE MONOCYTES (AUTO) 0.6 10^3/uL (0.1-1.4); ABSOLUTE NEUT (AUTO) 3.7 10^3/uL (1.7-8.2); BASOPHILS % (AUTO) 1.1 % (0-2); EOSINOPHILS % (AUTO) 2.4 % (0-6); HEMATOCRIT 41.4 % (36.0-47.0); LYMPHOCYTES % (AUTO) 38.2 % (13-45); MEAN CORPUSCULAR HEMOGLOBIN 30.3 pg (27.0-33.4); MEAN CORPUSCULAR HGB CONC 33.8 g/dL (32.0-36.0); MEAN CORPUSCULAR VOLUME 90 fl (80-97); MONOCYTES % (AUTO) 8.2 % (3-13); PLATELET COUNT 203 10^3/uL (150-450); RED BLOOD COUNT 4.62 10^6/uL (3.72-5.28); SEGMENTED NEUTROPHILS % (AUTO) 50.1 % (42-78); TOTAL CELLS COUNTED % (AUTO) 100 %; WHITE BLOOD COUNT 7.5 10^3/uL (4.0-10.5)
[2019-04-28 15:22] LABS: ALBUMIN 3.8 g/dL (3.5-5.0); ALKALINE PHOSPHATASE 105 U/L (38-126); ANION GAP 9 (5-19); ASPARTATE AMINO TRANSFERASE 25 U/L (14-36); BILIRUBIN,DIRECT 0.3 mg/dL (0.0-0.4); BILIRUBIN,TOTAL 0.4 mg/dL (0.2-1.3); BLOOD UREA NITROGEN 14 mg/dL (7-20); CALCIUM 9.3 mg/dL (8.4-10.2); CARBON DIOXIDE 25 mmol/L (22-30); CHLORIDE 105 mmol/L (98-107); GLUCOSE 86 mg/dL (75-110); POTASSIUM 4.3 mmol/L (3.6-5.0); TOTAL PROTEIN 6.4 g/dL (6.3-8.2)
== END ==
LOC: OD 14:02
PROVIDERS: ATTEND Internal Medicine
DX: E87.70 Fluid overload, unspecified (principal); R53.83 Other fatigue; E03.9 Hypothyroidism, unspecified
CPT/HCPCS: 36415; 80053; 84443; 85025

== ENCOUNTER 2019-06-08 08:48 | Emergency (ER) | payer BC ==
[2019-06-08] MEDS ORDERED: DIPHENHYDRAMINE HCL 50 MG/ML VIAL IV ONE (09:48)
[2019-06-08] MEDS ORDERED: METOCLOPRAMIDE HCL INJ/PF 10 MG/2 ML SDV IV ONE (09:48)
[2019-06-08 09:53] LABS: APPEARANCE,URINE CLEAR; BILIRUBIN,URINE NEGATIVE (NEGATIVE); COLOR,URINE COLORLESS; GLUCOSE, URINE NEGATIVE (NEGATIVE); KETONES,URINE NEGATIVE (NEGATIVE); LEUKOCYTE ESTERASE,URINE NEGATIVE (NEGATIVE); NITRITE,URINE NEGATIVE (NEGATIVE); PROTEIN,URINE NEGATIVE (NEGATIVE); URINE SPECIFIC GRAVITY 1.003; UROBILINOGEN,URINE NEGATIVE mg/dL (<2.0)
--- NOTE | 2019-06-08 11:07 | ER Document Report ---
ED General - General Chief Complaint: Headache Stated Complaint: HEADACHE Time Seen by Provider: 06/08/19 09:21 Primary Care Provider: CACHORRO VERDIN MD [Primary Care Provider] - Follow up as needed TRAVEL OUTSIDE OF THE [place] IN LAST 30 DAYS: No - HPI Notes: 59-year-old female with a long-standing history of migraines presents with headache. Patient describes 3 weeks of intermittent headache, worse for the last day or 2. Right frontoparietal with associated "squiggles" in her vision. Nausea, vomited once. Stereotypical for prior migraines. No trauma. No use of anticoagulants. Moderate intensity, gradual onset, nonradiating. No other modifying factors, no other associated symptoms, no other provocative or palliative factors. - Related Data Allergies/Adverse Reactions: levofloxacin [From Levaquin] Allergy (Verified 06/08/19 09:08) levothyroxine Allergy (Verified 06/08/19 09:08) morphine Allergy (Verified 06/08/19 09:08) Sulfa (Sulfonamide Antibiotics) Allergy (Verified 06/08/19 09:08) Past Medical History - Social History Smoking Status: Current Every Day Smoker Chew tobacco use (# tins/day): No Frequency of alcohol use: None Drug Abuse: None Family History: Reviewed & Not Pertinent, Malignancy - Father - lymphoma Patient has suicidal ideation: No Patient has homicidal ideation: No - Medical History Notes: Includes migraine headache - Past Medical History Cardiac Medical History: Reports: Hx Hypercholesterolemia Pulmonary Medical History: Reports: Hx COPD Endocrine Medical History: Reports: Hx Hypothyroidism Renal/ Medical History: Denies: Hx Peritoneal Dialysis Past Surgical History: Reports: Hx Abdominal Surgery, Hx Cholecystectomy, Hx Orthopedic Surgery Review of Systems - Review of Systems Notes: Review of systems as in the history of present illness, otherwise negative x 10 systems. Physical Exam - Notes Notes: General: Well developed, well nourished. HEENT: Normocephalic, atraumatic. PEERL. No conjunctival injection. Neck: Supple, no significant adenopathy. No meningismus. Chest: Clear bilaterally, good air entry. Abdomen: Soft, non-tender, nondistended. Back: Non-tender. Normal ROM Extremities: No cyanosis, clubbing or edema. Vascular: Symmetric peripheral pulses, normal capillary refill. Skin: No significant rash. No petechiae or purpura. Motor: Normal tone and power. Symmetric. Neurologic: Alert and oriented to person place and time. Cranial nerves II-12 are intact. Sensation intact and symmetric in the upper and lower extremities. No cerebellar findings including finger-nose testing. No clonus. Gait normal. Funduscopic exam shows crisp disc margins, no evidence of papilledema. Course - Re-evaluation Re-evalutation: 06/08/19 10:43Well-appearing female likely migraine headache. Doubt intrarenal hemorrhage, bleed or thrombosis. Doubt meningitis or icy infection. This is a stereotypical presentation of her prior headaches. Will treat with IV Reglan, diphenhydramine, serial exams and reassess. 06/08/19 11:07 Patient had marked improvement, serial exams are benign, discharged home to follow closely with her primary care physician, return if worsening. Discharge - Discharge Clinical Impression: Migraine Qualifiers: Migraine type: unspecified Status migrainosus presence: with status migrainosus Intractability: intractable Qualified Code(s): G43.911 - Migraine, unspecified, intractable, with status migrainosus Condition: Good Disposition: HOME, SELF-CARE Instructions: Headache ([facility]) Referrals: CACHORRO VERDIN MD [Primary Care Provider] - Follow up as needed
[2019-06-08 11:22] VITALS: BP 136/95
== END 2019-06-08 11:22 | disposition home or self-care (01) ==
LOC: ER 08:48
DX: G43.911 Migraine, unspecified, intractable, with status migrainosus (principal); R11.2 Nausea with vomiting, unspecified; H53.8 Other visual disturbances; F17.200 Nicotine dependence, unspecified, uncomplicated; I10 Essential (primary) hypertension; Z88.1 Allergy status to other antibiotic agents; Z88.5 Allergy status to narcotic agent; Z88.2 Allergy status to sulfonamides
CPT/HCPCS: 81001; J1200; J2765

== ENCOUNTER 2019-06-23 09:18 | Emergency (ER) | payer BC ==
[2019-06-23] MEDS ORDERED: ASPIRIN 81 MG TABLET, CHEWABLE PO ONE (10:59)
[2019-06-23 11:38] LABS: ABSOLUTE BASOPHILS # (AUTO) 0.1 10^3/uL (0.0-0.2); ABSOLUTE EOSINOPHILS # (AUTO) 0.2 10^3/uL (0.0-0.6); ABSOLUTE LYMPHOCYTES (AUTO) 2.6 10^3/uL (0.5-4.7); ABSOLUTE MONOCYTES (AUTO) 0.5 10^3/uL (0.1-1.4); ABSOLUTE NEUT (AUTO) 4.6 10^3/uL (1.7-8.2); BASOPHILS % (AUTO) 0.9 % (0-2); EOSINOPHILS % (AUTO) 2.3 % (0-6); HEMATOCRIT 45.6 % (36.0-47.0); HEMOGLOBIN 15.4 g/dL (12.0-15.5); LYMPHOCYTES % (AUTO) 32.9 % (13-45); MEAN CORPUSCULAR HEMOGLOBIN 30.2 pg (27.0-33.4); MEAN CORPUSCULAR HGB CONC 33.7 g/dL (32.0-36.0); MEAN CORPUSCULAR VOLUME 90 fl (80-97); MONOCYTES % (AUTO) 6.6 % (3-13); PLATELET COUNT 236 10^3/uL (150-450); RED CELL DISTRIBUTION WIDTH 14.6 % (11.5-14.0); SEGMENTED NEUTROPHILS % (AUTO) 57.3 % (42-78); TOTAL CELLS COUNTED % (AUTO) 100 %
[2019-06-23 11:58] LABS: ALBUMIN 4.1 g/dL (3.5-5.0); ALKALINE PHOSPHATASE 99 U/L (38-126); ANION GAP 8 (5-19); ASPARTATE AMINO TRANSFERASE 29 U/L (14-36); BILIRUBIN,DIRECT 0.2 mg/dL (0.0-0.4); BILIRUBIN,TOTAL 0.6 mg/dL (0.2-1.3); BLOOD UREA NITROGEN 11 mg/dL (7-20); CALCIUM 9.9 mg/dL (8.4-10.2); CARBON DIOXIDE 25 mmol/L (22-30); CHLORIDE 106 mmol/L (98-107); CREATINE KINASE 33 U/L (30-135); GLUCOSE 104 mg/dL (75-110); POTASSIUM 4.7 mmol/L (3.6-5.0); TOTAL PROTEIN 7.4 g/dL (6.3-8.2)
[2019-06-23 12:10] LABS: CREATINE KINASE MB 0.59 ng/mL (<4.55); TROPONIN I < 0.012 ng/mL
[2019-06-23] MEDS ORDERED: BUTALB/ACETAMINOPHEN/CAFFEINE 1 TAB EACH PO ONE (12:11)
--- NOTE | 2019-06-23 14:22 | ER Document Report ---
ED Cardiac - General Chief Complaint: Chest Pain > 30 Stated Complaint: CHEST PAIN Time Seen by Provider: 06/23/19 11:58 Primary Care Provider: CACHORRO VERDIN MD [Primary Care Provider] - Follow up as needed Mode of Arrival: Ambulatory Information source: Patient TRAVEL OUTSIDE OF THE [place] IN LAST 30 DAYS: No - HPI Notes: Patient presents with multiple complaints. She has headache. Nausea. Chest pain. Abdominal pain. Back pain. As well as overall body aches and sensations of shortness of breath and leg swelling. She has been seeing her primary doctor for this. She states she does not see a chart reader. Nothing appears to make the symptoms better or worse. They do obviously seem to radiate throughout her body. They are moderate in intensity. They appear to be intermittent and sporadic. no Cough cold or congestion. - Related Data Allergies/Adverse Reactions: levofloxacin [From Levaquin] Allergy (Verified 06/08/19 09:08) levothyroxine Allergy (Verified 06/08/19 09:08) morphine Allergy (Verified 06/08/19 09:08) Sulfa (Sulfonamide Antibiotics) Allergy (Verified 06/08/19 09:08) Past Medical History - General Information source: Patient - Social History Smoking Status: Current Every Day Smoker Chew tobacco use (# tins/day): No Frequency of alcohol use: None Drug Abuse: Marijuana Family History: Reviewed & Not Pertinent, Malignancy - Father - lymphoma Patient has suicidal ideation: No Patient has homicidal ideation: No - Past Medical History Cardiac Medical History: Reports: Hx Hypercholesterolemia Pulmonary Medical History: Reports: Hx COPD Endocrine Medical History: Reports: Hx Hypothyroidism Renal/ Medical History: Denies: Hx Peritoneal Dialysis Past Surgical History: Reports: Hx Abdominal Surgery, Hx Cholecystectomy, Hx Orthopedic Surgery Review of Systems - Review of Systems Constitutional: Malaise, Weakness. denies: Chills, Fever Cardiovascular: Chest pain. denies: Heart racing Respiratory: Cough, Short of breath Gastrointestinal: Abdominal pain, Nausea -: Yes All other systems reviewed and negative Physical Exam - Vital signs Vitals: Temp Pulse Resp BP Pulse Ox 98.5 F 73 20 136/73 H 98 06/23/19 09:40 06/23/19 09:40 06/23/19 09:40 06/23/19 09:40 06/23/19 09:40 Interpretation: Normal - General General appearance: Appears well, Alert - HEENT Head: Normocephalic, Atraumatic Eyes: Normal Pupils: PERRL - Respiratory Respiratory status: No respiratory distress Chest status: Nontender Breath sounds: Normal Chest palpation: Normal - Cardiovascular Rhythm: Regular Heart sounds: Normal auscultation Murmur: No - Abdominal Inspection: Normal Distension: No distension Bowel sounds: Normal Tenderness: Nontender Organomegaly: No organomegaly - Back Back: Normal, Nontender - Extremities General upper extremity: Normal inspection, Nontender, Normal color, Normal ROM, Normal temperature General lower extremity: Normal inspection, Nontender, Normal color, Normal ROM, Normal temperature, Normal weight bearing. No: Alyssa's sign - Neurological Neuro grossly intact: Yes Cognition: Normal Orientation: AAOx4 Anthony Coma Scale Eye Opening: Spontaneous Anthony Coma Scale Verbal: Oriented [place] Coma Scale Motor: Obeys Commands Anthony Coma Scale Total: 15 Speech: Normal Motor strength normal: LUE, RUE, LLE, RLE Sensory: Normal - Psychological Associated symptoms: Normal affect, Normal mood - Skin Skin Temperature: Warm Skin Moisture: Dry Skin Color: Normal Course - Re-evaluation Re-evalutation: 06/23/19 14:19 Patient presents with numerous complaints of pain. These areas include her head chest back and abdomen. As well as shortness of breath and leg swelling. I can find no acute pathology that needs addressed in the hospital. I think the patient will be safe for discharge and follow-up as an outpatient. - Vital Signs Vital signs: Temp Pulse Resp BP Pulse Ox 98.5 F 73 20 136/73 H 97 06/23/19 09:40 06/23/19 09:40 06/23/19 09:40 06/23/19 09:40 06/23/19 11:06 - Laboratory Result Diagrams: 06/23/19 11:20 06/23/19 11:20 Laboratory results interpreted by me: 06/23/19 11:20 RDW 14.6 H - EKG Interpretation by Ct EKG shows normal: Sinus rhythm Rate: Normal - 82 Rhythm: NSR [place]/QRS: Left axis deviation Discharge - Discharge Clinical Impression: Chest pain Qualifiers: Chest pain type: unspecified Qualified Code(s): R07.9 - Chest pain, unspecified Headache Qualifiers: Headache type: unspecified Headache chronicity pattern: acute headache Intractability: intractable Qualified Code(s): R51 - Headache Condition: Stable Disposition: HOME, SELF-CARE Instructions: Chest Pain of Unclear Cause ([facility]) Additional Instructions: Please call your primary physician as soon as possible for follow-up. Please call Dr. Yeager as soon as possible to arrange follow-up for your chest pain. I have included his business card in your discharge instructions. Prescriptions: Butalb/Acetaminophen/Caffeine [Fioricet (50-325-40 mg) Tablet] 1 tab PO Q6 3 Days #12 tab Referrals: CACHORRO VERDIN MD [Primary Care Provider] - Follow up in 3-5 days JOELLE YEAGER MD [ACTIVE STAFF] - Follow up in 3-5 days
[2019-06-23 14:45] VITALS: BP 129/76
--- NOTE | 2019-06-24 07:15 | EKG REPORT ---
SEVERITY:- BORDERLINE ECG - SINUS RHYTHM BORDERLINE LEFT AXIS DEVIATION CONSIDER ANTERIOR INFARCT : Confirmed by: Meghan Huizar 24-Jun-2019 07:14:23
== END 2019-06-23 14:47 | disposition home or self-care (01) ==
LOC: ER 09:18
DX: R07.9 Chest pain, unspecified (principal); R51 Headache; R11.0 Nausea; R10.9 Unspecified abdominal pain; M54.9 Dorsalgia, unspecified; F12.10 Cannabis abuse, uncomplicated; J44.9 Chronic obstructive pulmonary disease, unspecified; R53.81 Other malaise; R53.1 Weakness; R06.02 Shortness of breath; R05 Cough; F17.200 Nicotine dependence, unspecified, uncomplicated; Z88.1 Allergy status to other antibiotic agents; Z88.5 Allergy status to narcotic agent; Z88.2 Allergy status to sulfonamides
CPT/HCPCS: 36415; 82553; 82550; 85025; 80053; 84484; J3490; 93005; 93010; 99285

== ENCOUNTER → 2019-08-15 | Outpatient (CLI) | payer BC | LOC: OD 09:32 | PROVIDERS: ATTEND Internal Medicine | DX: E03.9 Hypothyroidism, unspecified (principal) | CPT/HCPCS: 36415; 84443 ==

== ENCOUNTER 2019-10-05 13:24 | Emergency (ER) | payer BC ==
[2019-10-05 14:19] LABS: ABSOLUTE EOSINOPHILS # (AUTO) 0.2 10^3/uL (0.0-0.6); ABSOLUTE LYMPHOCYTES (AUTO) 2.2 10^3/uL (0.5-4.7); ABSOLUTE MONOCYTES (AUTO) 0.5 10^3/uL (0.1-1.4); ABSOLUTE NEUT (AUTO) 4.1 10^3/uL (1.7-8.2); BASOPHILS % (AUTO) 0.6 % (0-2); EOSINOPHILS % (AUTO) 2.7 % (0-6); HEMATOCRIT 45.3 % (36.0-47.0); HEMOGLOBIN 15.4 g/dL (12.0-15.5); LYMPHOCYTES % (AUTO) 31.8 % (13-45); MEAN CORPUSCULAR HGB CONC 34.1 g/dL (32.0-36.0); MEAN CORPUSCULAR VOLUME 91 fl (80-97); MONOCYTES % (AUTO) 7.3 % (3-13); PLATELET COUNT 210 10^3/uL (150-450); RED BLOOD COUNT 4.98 10^6/uL (3.72-5.28); RED CELL DISTRIBUTION WIDTH 14.9 % (11.5-14.0); SEGMENTED NEUTROPHILS % (AUTO) 57.6 % (42-78); TOTAL CELLS COUNTED % (AUTO) 100 %; WHITE BLOOD COUNT 7.1 10^3/uL (4.0-10.5)
--- NOTE | 2019-10-05 14:20 | ER Document Report ---
ED Medical Screen (RME) - General Chief Complaint: Back Pain Stated Complaint: BACK PAIN Time Seen by Provider: 10/05/19 13:45 Primary Care Provider: CACHORRO VERDIN MD [Primary Care Provider] - Follow up as needed Mode of Arrival: Ambulatory Information source: Patient Notes: Otherwise healthy 59-year-old female presenting to the emergency department chief complaint of right flank pain. Patient reports she had a CAT scan done of her chest recently which showed a "spot on her kidney". She reports since that time she has been having increasing pain. She denies any radiation of the pain, denies any vomiting or diarrhea reports mild nausea but she thinks it is due to the pain. I have greeted and performed a rapid initial assessment of this patient. A c omprehensive ED assessment and evaluation of the patient, analysis of test results and completion of the medical decision making process will be conducted by additional ED providers. I have specifically instructed the patient or family members with the patient to immediately return to any nursing staff should anything change in the patient's condition or with their chief complaint. TRAVEL OUTSIDE OF THE [place] IN LAST 30 DAYS: No - Related Data Allergies/Adverse Reactions: levofloxacin [From Levaquin] Allergy (Verified 10/05/19 13:52) levothyroxine Allergy (Verified 10/05/19 13:52) morphine Allergy (Verified 10/05/19 13:52) Sulfa (Sulfonamide Antibiotics) Allergy (Verified 10/05/19 13:52) Home Medications: buspar Past Medical History - Social History Chew tobacco use (# tins/day): No Frequency of alcohol use: Occasional - Past Medical History Cardiac Medical History: Reports: Hx Hypercholesterolemia Pulmonary Medical History: Reports: Hx COPD Endocrine Medical History: Reports: Hx Hypothyroidism Renal/ Medical History: Denies: Hx Peritoneal Dialysis Past Surgical History: Reports: Hx Abdominal Surgery, Hx Cholecystectomy, Hx Orthopedic Surgery Physical Exam - Vital signs Vitals: Temp Pulse Resp BP Pulse Ox 97.7 F 91 18 156/91 H 99 10/05/19 13:31 10/05/19 13:31 10/05/19 13:31 10/05/19 13:31 10/05/19 13:31 Course - Vital Signs Vital signs: Temp Pulse Resp BP Pulse Ox 97.7 F 91 18 156/91 H 99 10/05/19 13:31 10/05/19 13:31 10/05/19 13:31 10/05/19 13:31 10/05/19 13:31 - Laboratory Result Diagrams: 10/05/19 14:10 10/05/19 14:10 Doctor's Discharge - Discharge Referrals: CACHORRO VERDIN MD [Primary Care Provider] - Follow up as needed
[2019-10-05 14:45] LABS: ALBUMIN 4.1 g/dL (3.5-5.0); ALKALINE PHOSPHATASE 90 U/L (38-126); ANION GAP 7 (5-19); ASPARTATE AMINO TRANSFERASE 23 U/L (14-36); BILIRUBIN,TOTAL 0.3 mg/dL (0.2-1.3); BLOOD UREA NITROGEN 9 mg/dL (7-20); CALCIUM 10.1 mg/dL (8.4-10.2); CARBON DIOXIDE 28 mmol/L (22-30); CHLORIDE 104 mmol/L (98-107); GLUCOSE 108 mg/dL (75-110); POTASSIUM 3.8 mmol/L (3.6-5.0); TOTAL PROTEIN 7.1 g/dL (6.3-8.2)
--- NOTE | 2019-10-05 16:29 | RADIOLOGY REPORT (SQ) ---
EXAM DESCRIPTION: U/S RETROPERITON (RENAL/AORTA) COMPLETED DATE/TIME: 10/05/2019 3:57 pm REASON FOR STUDY: R FLANK PAIN COMPARISON: None. TECHNIQUE: Dynamic and static grayscale images acquired of the kidneys and bladder and recorded on P ACS. Additional selected color Doppler and spectral images recorded. LIMITATIONS: None. FINDINGS: RIGHT KIDNEY: Normal size measuring 11.9 cm. Normal echogenicity. Indeterminate hypoechoi c off the lower pole measuring 1.9 x 1.9 x 2.0 cm with evidence of internal vascularity. No hydronep hrosis. No calcifications. LEFT KIDNEY: Normal size measuring 9.8 cm. Normal echogenicity. No solid or suspicious masses. Mild fullness of the pelvis without caliceal dilation. Echogenic focus measuring 7 mm with twinkle artif act. Mildly prominent renal pelvis. BLADDER: No masses. OTHER FINDINGS: No other significant finding. IMPRESSION: 1. Indeterminate hypoechoic lesion off the right lower pole. Recommend multiphase cont rast enhanced CT or MR for further characterization. 2. 7 mm echogenic focus within the left kidney, likely nonobstructing stone. TECHNICAL DOCUMENTATION: JOB ID: [id number] [employer]- All Rights Reserved Reading location - IP/workstation name: [email or web address]
[2019-10-05 17:00] LABS: APPEARANCE,URINE CLEAR; BILIRUBIN,URINE NEGATIVE (NEGATIVE); COLOR,URINE YELLOW; GLUCOSE, URINE NEGATIVE (NEGATIVE); KETONES,URINE NEGATIVE (NEGATIVE); LEUKOCYTE ESTERASE,URINE NEGATIVE (NEGATIVE); NITRITE,URINE NEGATIVE (NEGATIVE); PROTEIN,URINE NEGATIVE (NEGATIVE); UROBILINOGEN,URINE NEGATIVE mg/dL (<2.0)
[2019-10-05] MEDS ORDERED: KETOROLAC TROMETHAMINE INJ/PF 30 MG/1 ML SDV IV ONE (18:12)
--- NOTE | 2019-10-05 18:21 | ER Document Report ---
ED General - General Chief Complaint: Back Pain Stated Complaint: BACK PAIN Time Seen by Provider: 10/05/19 13:45 Primary Care Provider: CACHORRO VERDIN MD [Primary Care Provider] - Follow up as needed Mode of Arrival: Ambulatory Notes: Patient is a 59-year-old female with a history of thyroid dysfunction, high cholesterol, hypertension who presents to the emergency department with a chief complaint of right flank pain. Patient reports that she had a CT scan performed outpatient of her chest recently and was told she had a possible mass on her kidney. Patient reports that she got the CT of her chest performed as a thought maybe she was having breathing issues and does have a hand sewer shoes. Patient states today she is not have any shortness of breath or chest pain. Patient re ports the right flank pain has been intermittent for about 1 year. Patient denies urinary symptoms. Patient reports she chalked her right flank pain up to sleeping on an uncomfortable mattress. Patient denies fever. Patient denies nausea, vomiting or diarrhea. Patient reports she did see a energy operations vice president as well and had a negative heart cath 2 months ago. Patient denies chest pain. Patient reports the right flank pain is nonradiating. TRAVEL OUTSIDE OF THE [place] IN LAST 30 DAYS: No - Related Data Allergies/Adverse Reactions: levofloxacin [From Levaquin] Allergy (Verified 10/05/19 13:52) levothyroxine Allergy (Verified 10/05/19 13:52) morphine Allergy (Verified 10/05/19 13:52) Sulfa (Sulfonamide Antibiotics) Allergy (Verified 10/05/19 13:52) Home Medications: buspar Past Medical History - General Information source: Patient - Social History Smoking Status: Current Every Day Smoker Chew tobacco use (# tins/day): No Frequency of alcohol use: Occasional Drug Abuse: None Lives with: Spouse/Significant other Family History: Reviewed & Not Pertinent, Malignancy - Father - lymphoma Patient has suicidal ideation: No Patient has homicidal ideation: No - Past Medical History Cardiac Medical History: Reports: Hx Hypercholesterolemia Pulmonary Medical History: Reports: Hx COPD EENT Medical History: Reports: None Neurological Medical History: Reports: None Endocrine Medical History: Reports: Hx Hypothyroidism Renal/ Medical History: Reports: None. Denies: Hx Peritoneal Dialysis Malignancy Medical History: Reports: None GI Medical History: Reports: None Musculoskeletal Medical History: Reports None Skin Medical History: Reports None Psychiatric Medical History: Reports: None Traumatic Medical History: Reports: None Infectious Medical History: Reports: None Past Surgical History: Reports: Hx Abdominal Surgery, Hx Cholecystectomy, Hx Orthopedic Surgery Review of Systems - Review of Systems Constitutional: No symptoms reported EENT: No symptoms reported Cardiovascular: No symptoms reported Respiratory: No symptoms reported Gastrointestinal: No symptoms reported Genitourinary: See HPI Female Genitourinary: No symptoms reported Musculoskeletal: No symptoms reported Skin: No symptoms reported Hematologic/Lymphatic: No symptoms reported Neurological/Psychological: No symptoms reported Physical Exam - Vital signs Vitals: Temp Pulse Resp BP Pulse Ox 97.7 F 91 18 156/91 H 99 10/05/19 13:31 10/05/19 13:31 10/05/19 13:31 10/05/19 13:10/05/19 13:31 Interpretation: Hypertensive - Notes Notes: GENERAL: Well-appearing, well-nourished and in no acute distress. HEAD: Atraumatic, normocephalic. EYES: Pupils equal round and reactive to light, extraocular movements intact, sclera anicteric, conjunctiva are normal. ENT: Nares patent, oropharynx clear without exudates. Moist mucous membranes. NECK: Normal range of motion, supple without lymphadenopathy or JVD. LUNGS: Breath sounds clear to auscultation bilaterally and equal. No wheezes rales or rhonchi. HEART: Regular rate and rhythm without murmurs, rubs or gallops. ABDOMEN: Soft, nontender, normoactive bowel sounds. No guarding, no rebound. No masses appreciated. BACK: No cervical, thoracic, lumbar midline tenderness. No saddle anesthesia, normal distal neurovascular exam. No left CVA tenderness, + right CVA tenderness. GENITOURINARY: Deferred. EXTREMITIES: Normal range of motion, no pitting or edema. No clubbing or cyanosis. NEUROLOGICAL: Cranial nerves II through XII grossly intact. Normal speech, normal gait. PSYCH: Normal mood, normal affect. SKIN: Warm, Dry, normal turgor, no rashes or lesions noted. Course - Re-evaluation Re-evalutation: 10/05/19 18:20 Upon initial evaluation patient complains of right flank pain. Patient is requesting something for her discomfort. I will give IV 15 mg of Toradol. Patient states she has had Toradol in the past with no issue. Patient is nontoxic-appearing. I did inform the patient that I spoke with the radiologist (Dr. Marrero) who recommends obtaining a CT of the abdomen and pelvis with IV contrast. Patient denies abdominal pain. Patient states she had a CT of the chest performed within the past 2 weeks and was told there was a spot on her kidney that was concerning. Patient sought care to the emergency room because she was having right flank pain. Patient does not go to Dr. Verdin as her primary care physician. 10/05/19 20:[address] speak with [address] Ela Lindo, the radiologist who read the CT scan. I did clarify that they did not see anything on the right kidney as they were concerned about on the ultrasound. She states there is nothing on the right kidney. I did discuss with results with the patient will provide her with a disc of her images on there. I did inform her to follow-up with Dr. Verdin. Patient reports that the Toradol did help with her pain she was able to nap and get some rest. I will give her a prescription for this. - Vital Signs Vital signs: Temp Pulse Resp BP Pulse Ox 98.3 F 76 19 149/87 H 97 10/05/19 19:52 10/05/19 19:52 10/05/19 19:52 10/05/19 19:52 10/05/19 19:52 - Laboratory Result Diagrams: 10/05/19 14:10 10/05/19 14:10 Laboratory results interpreted by me: 10/05/19 14:10 RDW 14.9 H 10/05/19 18:20 Patient's blood work does not show significant leukocytosis, anemia, alteration in electrolytes or kidney function. Patient has a negative urinalysis does not show an acute infection. Laboratory 10/05/19 10/05/19 10/05/19 14:10 14:10 16:07 WBC 7.1 RBC 4.98 Hgb 15.4 Hct 45.3 MCV 91 MCH 31.0 MCHC 34.1 RDW 14.9 H Plt Count 210 Lymph % (Auto) 31.8 [place] % (Auto) 7.3 Eos % (Auto) 2.7 Baso % (Auto) 0.6 Absolute Neuts (auto) 4.1 Absolute Lymphs (auto) 2.2 Absolute Monos (auto) 0.5 Absolute Eos (auto) 0.2 Absolute Basos (auto) 0.0 Seg Neutrophils % 57.6 Sodium 139.4 Potassium 3.8 Chloride 104 Carbon Dioxide 28 Anion Gap 7 BUN 9 Creatinine 0.68 Est GFR ( Amer) > 60 Est GFR (MDRD) Non-Af > 60 Glucose 108 Calcium 10.1 Total Bilirubin 0.3 Direct Bilirubin 0.0 Neonat Total Bilirubin Not Reportable Neonat Direct Bilirubin Not Reportable Neonat Indirect Bili Not Reportable AST 23 ALT 19 Alkaline Phosphatase 90 Total Protein 7.1 Albumin 4.1 Urine Color YELLOW Urine Appearance CLEAR Urine pH 6.0 Ur Specific [place] 1.010 Urine Protein NEGATIVE Urine Glucose (UA) NEGATIVE Urine Ketones NEGATIVE Urine Blood NEGATIVE Urine Nitrite NEGATIVE Urine Bilirubin NEGATIVE Urine Urobilinogen NEGATIVE Ur Leukocyte Esterase NEGATIVE Urine WBC (Auto) 1 Urine RBC (Auto) 1 Squamous Epi Cells Auto 1 Urine Mucus (Auto) OCC Urine Ascorbic Acid NEGATIVE - Diagnostic Test Radiology reviewed: Reports reviewed Radiology results interpreted by me: 10/05/19 20:56 Renal Ultrasound 10/05/19 13:56 IMPRESSION: 1. Indeterminate hypoechoic lesion off the right lower pole. Recommend multiphase contrast enhanced CT or MR for further characterization. 2. 7 mm echogenic focus within the left kidney, likely nonobstructing stone. Abdomen/Pelvis CT 10/05/19 18:12 IMPRESSION: 1. No specific acute intra-abdominal findings are noted to suggest etiology of the patient's abdominal pain. 2. Large fat-containing umbilical hernia. Discharge - Discharge Clinical Impression: Right flank pain Umbilical hernia Qualifiers: Obstruction and gangrene presence: without obstruction or gangrene Qualified Code(s): K42.9 - Umbilical hernia without obstruction or gangrene Condition: Stable Disposition: HOME, SELF-CARE Additional Instructions: *Today was seen in the emergency department for right flank pain. Your blood work and urinalysis was unremarkable. Did obtain a CAT scan of your abdomen and pelvis with focus on your right kidney. It did not show any abnormality such as a cyst or mass. I have provided you with your radiology imaging that does contain the CAT scan as well as the ultrasound. I would follow-up with Dr. Verdin. Please return the emergency department if you develop any new worsening symptoms such as severe pain, fever, vomiting. The CAT scan did show that you had a fat-containing umbilical hernia. Your abdominal examination was reassuring. Usually these are benign but become a problem if they start to bulge out or cause severe pain. Please be aware that you do have a hernia so you develop any of the symptoms you can seek medical attention. If there is ever a bulge in your abdomen and you are unable to really reduce this seek medical attention as this can cause serious injury. Hernia You have a hernia. A hernia forms at a weak spot in the abdominal wall. Bowel slips out of the abdominal cavity into the weak spot. Hernias tend to occur in the groin (especially in males), the fold of the thigh, the naval, or at a surgical scar. Surgical repair of the defect is usually necessary. The problem tends to get worse. It's important that you follow up as recommended. For now, you should avoid straining, heavy lifting, and vigorous exercise. Complications occur if the hernia becomes tightly stuck. You should come back immediately if the area becomes increasingly painful, swollen, or di scolored, or if you develop abdominal pain and vomiting. Prescriptions: Ketorolac Tromethamine [Toradol 10 mg Tablet] 10 mg PO Q8HP PRN #12 tablet PRN Reason: Forms: Return to Work Referrals: CACHORRO VERDIN MD [Primary Care Provider] - Follow up as needed
--- NOTE | 2019-10-05 20:22 | RADIOLOGY REPORT (SQ) ---
EXAM DESCRIPTION: CT ABDOMEN PELVIS WITH IV CONTRAST COMPLETED DATE/TME: 10/05/2019 18:12 CLINICAL INDICATION: 59-year-old female with RIGHT flank pain, possible mass. COMPARISON: None. EXAMINATION: CT of the abdomen and pelvis was performed following intravenous administration of contrast. Oral contrast was not administered. Multiplanar reformatted images were provided. This exam was performed according to our departmental dose optimization program which includes use of automated exposure control, adjustment of the mA and/or kV according to patient size and/or use of iterative reconstruction technique. FINDINGS: Chest: Evaluation through the lung bases reveals no focal opacity, pleural effusion or pneumothorax. Heart size is within normal limits. No pericardial effusion. Abdomen and pelvis: The liver, pancreas, spleen, bilateral kidneys and bilateral adrenal glands are within normal limits. Circumscribed focus of hypoattenuation is identified at the level of the LEFT hilar region suggestive of a simple renal cyst, however too small to accurately characterize measuring approximately 25 Hounsfield units and measuring 9 mm. However measuring approximately 14 Hounsfield units on delayed imaging suggestive of a simple renal cyst. No right-sided renal cyst or masses identified. No obstructing calculi noted bilaterally. Surgical clips at the level of the gallbladder fossa status post cholecystectomy. The vessels reveals mild atherosclerotic calcification otherwise patent and normal in caliber. No abdominopelvic lymph nodes are noted to be pathologically enlarged by CT measurement criteria. The bowel is within normal limits without abnormal bowel wall thickness or bowel dilation. No free air. No free abdominopelvic fluid collections. The appendix is within normal limits. The uterus is within normal limits of a contrast-enhanced CT examination. The LEFT adnexa is within normal limits. The RIGHT adnexa reveals a focus of circumscribed ovoid hypoattenuating measuring 2.7 cm (series 3, image 64). The osseous structures are within normal limits. Large fat-containing umbilical hernia with broad-based opening measuring 2.7 cm. The hernia measures approximately 2.6 x 4.2 x 4.5 cm. IMPRESSION: 1. No specific acute intra-abdominal findings are noted to suggest etiology of the patient's abdominal pain. 2. Large fat-containing umbilical hernia.
[2019-10-05 21:40] VITALS: BP 134/66
== END 2019-10-05 21:22 | disposition home or self-care (01) ==
LOC: ER 13:24
DX: R10.9 Unspecified abdominal pain (principal); K42.9 Umbilical hernia without obstruction or gangrene; I10 Essential (primary) hypertension; J44.9 Chronic obstructive pulmonary disease, unspecified; F17.200 Nicotine dependence, unspecified, uncomplicated; Z88.1 Allergy status to other antibiotic agents; Z88.6 Allergy status to analgesic agent; Z88.5 Allergy status to narcotic agent; Z88.2 Allergy status to sulfonamides
CPT/HCPCS: 99284; 96374; 36415; 85025; 80053; 81001; 76770; 74177; J1885

== ENCOUNTER → 2020-04-25 | Outpatient (CLI) | payer BC ==
--- NOTE | 2020-04-25 13:39 | RADIOLOGY REPORT (SQ) ---
EXAM DESCRIPTION: CT ABD/PELVIS COMBO IMAGES COMPLETED DATE/TIME: 04/25/2020 9:36 am REASON FOR STUDY: N28.89 OTHER SPECIFIED DISORDERS OF KIDNEY AND URETER N28.89 OTHER SPECIFIED DISO RDERS OF KIDNEY AND URETER COMPARISON: 10/05/2019 TECHNIQUE: CT scan of the abdomen and pelvis performed with and without intravenous contrast, and wi thout oral contrast. Contrasted imaging performed helical scanning technique and dynamic intravenous contrast injection. Images reviewed with lung, soft tissue, and bone windows. Reconstructed coronal a nd sagittal MPR images reviewed. Delayed images for evaluation of the urinary system also acquired. A ll images stored on PACS. All CT scanners at this facility use dose modulation, iterative reconstruction, and/or weight based d osing when appropriate to reduce radiation dose to as low as reasonably achievable (ALARA). [facility]: Dose Right [facility]: CareDose [facility]: Dose Right [facility]: Teradose 4D [facility]: [employer] CONTRAST TYPE AND DOSE: contrast/concentration: Isovue 350.00 mmol/ml; Total Contrast Delivered: 100 .0 ml; Total Saline Delivered: 65.0 ml RENAL FUNCTION: Creatinine 0.8 RADIATION DOSE: CT Rad equipment meets quality standard of care and radiation dose reduction techniq ues were employed. CTDIvol: 23.2 - 26.7 mGy. DLP: 3732 mGy-cm. . LIMITATIONS: None. FINDINGS: NON-CONTRASTED IMAGING: No significant renal or bladder calcifications. No other significa nt organ calcifications. POST-CONTRASTED IMAGING: LOWER CHEST: No significant findings. No nodules or infiltrates. LIVER: Normal size. No masses. No dilated ducts. SPLEEN: Normal size. No focal lesions. PANCREAS: No masses. No significant calcifications. No adjacent inflammation or peripancreatic fluid collections. Pancreatic duct not dilated. GALLBLADDER: Surgically absent. ADRENAL GLANDS: No significant masses or asymmetry. RIGHT KIDNEY AND URETER: No solid masses. No significant calcifications. No hydronephrosis or hyd roureter. LEFT KIDNEY AND URETER: No solid masses. A 1.2 x 1.2 x 1.1 cm hypoattenuating focus demonstrated on comparison imaging demonstrates Hounsfield units consistent with simple fluid on precontrast, portal venous phase, and delayed phase imaging, consistent with a small simple cyst. No significant calcif ications. No hydronephrosis or hydroureter. AORTA AND VESSELS: No aneurysm. No dissection. Renal arteries, SMA, celiac without stenosis. RETROPERITONEUM: No retroperitoneal adenopathy, hemorrhage or masses. BOWEL AND PERITONEAL CAVITY: No masses or inflammatory changes. No free fluid or peritoneal masses. APPENDIX: Normal. PELVIS: No mass. No free fluid. Normal bladder. ABDOMINAL WALL: Fat containing umbilical hernia. BONES: Degenerative changes are seen of the hips and spine. No suspicious lytic or blastic osseous l esions. OTHER: No other significant finding. IMPRESSION: Abnormal findings on comparison CT imaging are further characterized as a 1.2 x 1.2 x 1. 1 cm simple renal cyst on the left. No acute intra-abdominal abnormalities. TECHNICAL DOCUMENTATION: JOB ID: [id number] Quality ID # [id number]: Final reports with documentation of one or more dose reduction techniques (e.g., Au tomated exposure control, adjustment of the mA and/or kV according to patient size, use of iterative reconstruction technique) 2010 [employer]- All Rights Reserved Reading location - IP/workstation name: [email or web address]
== END ==
LOC: RAD 08:50
PROVIDERS: ATTEND Urology
DX: N28.89 Other specified disorders of kidney and ureter (principal)
CPT/HCPCS: 74178; 82565

== ENCOUNTER 2020-04-29 10:17 | Emergency (ER) | payer BC ==
--- NOTE | 2020-04-29 10:42 | ER Document Report ---
HPI - HPI Time Seen by Provider: 04/29/20 10:35 Pain Level: 3 Notes: 52-year-old female patient presents the emergency department with chills, sore throat, pain when swallowing, fatigue and headache. Patient does report travel about 2 weeks ago to [place] for a family member's passing. She denies being around anybody with COVID-19. She does report that her was vomiting last week. - ROS Systems Reviewed and Negative: Yes All other systems reviewed and negative - CONSTITUTIONAL Constitutional: REPORTS: Chills - EENT EENT: REPORTS: Sore Throat - NEURO Neurology: REPORTS: Headache - REPRODUCTIVE Reproductive: DENIES: : Past Medical History - General Information source: Patient - Social History Smoking Status: Current Every Day Smoker Chew tobacco use (# tins/day): No Frequency of alcohol use: None Drug Abuse: None Family History: Reviewed & Not Pertinent, Malignancy - Father - lymphoma Patient has homicidal ideation: No - Past Medical History Cardiac Medical History: Reports: Hx Hypercholesterolemia Pulmonary Medical History: Reports: Hx COPD Endocrine Medical History: Reports: Hx Hypothyroidism Renal/ Medical History: Denies: Hx Peritoneal Dialysis Past Surgical History: Reports: Hx Abdominal Surgery, Hx Cholecystectomy, Hx Orthopedic Surgery Vertical Provider Document - CONSTITUTIONAL Notes: PHYSICAL EXAMINATION: GENERAL: Well-appearing, well-nourished and in no acute distress. HEAD: Atraumatic, normocephalic. EYES: Pupils equal round extraocular movements intact, conjunctiva are normal. ENT: Nares patent, oropharynx non-erythemous, no tonsillar swelling, no exudates, uvula midline. NECK: Normal range of motion LUNGS: No respiratory distress, lung sounds clear and equal bilaterally. Musculoskeletal: Normal range of motion NEUROLOGICAL: Normal speech, normal gait. PSYCH: Normal mood, normal affect. SKIN: Warm, Dry, normal turgor, no rashes or lesions noted. - INFECTION CONTROL TRAVEL OUTSIDE OF THE [place] IN LAST 30 DAYS: No Course - Re-evaluation Re-evalutation: 04/29/20 10:41 We will obtain rapid strep, if positive will start patient on antibiotics. Will start patient on prednisone for her perceived throat swelling. She is speaking in full and complete sentences, swallowing without difficulty. She is being tested for COVID-19 today as well. Discharge - Discharge Clinical Impression: Sore throat, Encounter for laboratory testing for COVID-19 virus Condition: Stable Disposition: HOME, SELF-CARE Additional Instructions: Your rapid strep was negative today. Please take the steroids as prescribed. As a person under investigation for COVID-19, the [place] Department of Health and Human Services (division on public health) advises you to adhere to the following guidance until your test results are reported to you. If your test result is positive, you will receive additional information from your provider and your local health department at that time. Remain at home until you are cleared by the health provider or public health authorities. Keep a log of visitors to your home, notify any visitors to your home of your isolation status. If you plan to move to a new address or leave the [facility], notify the local health department in your County. Call your Doctor or seek care if you have an urgent medical need. Before seeking medical care, call him to get instructions from the provider before arriving at the medical office, clinic, or hospital. Notify them that you are being tested for the virus (COVID-19) so that arrangements can be made, as necessary, to prevent transmission to others in the healthcare setting. Next, notify the local health department in your county. If a medical emergency arises and you need to call 911, inform the first responders that you are being tested for the virus that causes COVID-19. Next, notify the local health department in your county. Prescriptions: Prednisone [Deltasone 20 mg Tablet] 3 tab PO DAILY 5 Days #15 tablet Forms: Return to Work Referrals: EDWARD GARCIA [NO LOCAL MD] - Follow up as needed
== END 2020-04-29 12:00 | disposition home or self-care (01) ==
LOC: ER 10:17
DX: J02.9 Acute pharyngitis, unspecified (principal); R51 Headache; R68.83 Chills (without fever); R53.83 Other fatigue; J44.9 Chronic obstructive pulmonary disease, unspecified; F17.200 Nicotine dependence, unspecified, uncomplicated; Z20.828 Contact with and (suspected) exposure to other viral communicable diseases
CPT/HCPCS: 99283; 87070; 87880; U0003; C9803; 87635

== ENCOUNTER 2020-09-25 11:16 | Emergency (ER) | payer BC ==
--- NOTE | 2020-09-25 11:46 | ER Document Report ---
ED Medical Screen (RME) - General Chief Complaint: Abdominal Pain Stated Complaint: BACK PAIN,RIGHT FLANK PAIN Time Seen by Provider: 09/25/20 11:32 TRAVEL OUTSIDE OF THE [place] IN LAST 30 DAYS: No - HPI Notes: 09/25/20 11:44 60-year-old female with a history of hypertension, hyperlipidemia, right ovarian cyst, right kidney cyst anxiety presents to the emergency room today for evaluation after she is experiencing right flank pain that radiates to her right lower quadrant for the last 3 days, reports pain comes and goes, 3 out of 5. Patient denies any chest pain, shortness of breath, nausea vomiting or diarrhea. Patient states that she does follow with nephrology in [place] for history of she is not sure if is a kidney stone or kidney cyst. She has been taking [id number] Tylenol and ibuprofen without relief. Patient reports she has had some cloudy urine with some noted hematuria in the last day. I have greeted and performed a rapid initial assessment of this patient. A comprehensive ED assessment and evaluation of the patient, analysis of test results and completion of the medical decision making process will be conducted by additional ED providers. PHYSICAL EXAMINATION: GENERAL: Well-appearing, well-nourished and in no acute distress. CV: s1, s2 regular LUNGS: No respiratory distress abd: No CVA tenderness appreciated bilaterally. Right lower quadrant tenderness on palpation with rebound tenderness midline, no left lower quadrant abdominal pain on palpation. Musculoskeletal: Normal range of motion NEUROLOGICAL: Normal speech, normal gait. SKIN: Warm, Dry, normal turgor, no rashes or lesions noted. The patient was evaluated during a global COVID-19 pandemic and that diagnosis was suspected/considered upon their initial presentation. Their evaluation, treatment and testing was consistent with current guidelines for patients who present with complaints or symptoms and may be related to COVID-19. - Related Data Allergies/Adverse Reactions: levofloxacin [From Levaquin] Allergy (Verified 04/29/20 10:41) levothyroxine Allergy (Verified 04/29/20 10:41) morphine Allergy (Verified 04/29/20 10:41) Sulfa (Sulfonamide Antibiotics) Allergy (Verified 04/29/20 10:41) Home Medications: buspirone 15mg BID, visteril 25mg qhs Past Medical History - Social History Chew tobacco use (# tins/day): No Frequency of alcohol use: Occasional Drug Abuse: None - Past Medical History Cardiac Medical History: Reports: Hx Hypercholesterolemia Pulmonary Medical History: Reports: Hx COPD Endocrine Medical History: Reports: Hx Hypothyroidism Renal/ Medical History: Denies: Hx Peritoneal Dialysis Past Surgical History: Reports: Hx Abdominal Surgery, Hx Cholecystectomy, Hx Orthopedic Surgery Physical Exam - Vital signs Vitals: Temp Pulse Resp BP Pulse Ox 98.9 F 89 16 145/90 H 98 09/25/20 11:24 09/25/20 11:24 09/25/20 11:24 09/25/20 11:24 09/25/20 11:24 Course - Vital Signs Vital signs: Temp Pulse Resp BP Pulse Ox 98.9 F 89 16 145/90 H 98 09/25/20 11:24 09/25/20 11:24 09/25/20 11:24 09/25/20 11:24 09/25/20 11:24
[2020-09-25 12:13] LABS: ABSOLUTE BASOPHILS # (AUTO) 0.1 10^3/uL (0.0-0.2); ABSOLUTE EOSINOPHILS # (AUTO) 0.2 10^3/uL (0.0-0.6); ABSOLUTE LYMPHOCYTES (AUTO) 2.7 10^3/uL (0.5-4.7); ABSOLUTE MONOCYTES (AUTO) 0.6 10^3/uL (0.1-1.4); ABSOLUTE NEUT (AUTO) 3.6 10^3/uL (1.7-8.2); BASOPHILS % (AUTO) 1.3 % (0-2); EOSINOPHILS % (AUTO) 2.9 % (0-6); HEMATOCRIT 44.5 % (36.0-47.0); HEMOGLOBIN 14.8 g/dL (12.0-15.5); LYMPHOCYTES % (AUTO) 37.9 % (13-45); MEAN CORPUSCULAR HEMOGLOBIN 29.5 pg (27.0-33.4); MEAN CORPUSCULAR HGB CONC 33.2 g/dL (32.0-36.0); MEAN CORPUSCULAR VOLUME 89 fl (80-97); MONOCYTES % (AUTO) 7.9 % (3-13); PLATELET COUNT 212 10^3/uL (150-450); RED BLOOD COUNT 5.01 10^6/uL (3.72-5.28); TOTAL CELLS COUNTED % (AUTO) 100 %; WHITE BLOOD COUNT 7.2 10^3/uL (4.0-10.5)
[2020-09-25 12:35] LABS: ALKALINE PHOSPHATASE 89 U/L (38-126); ASPARTATE AMINO TRANSFERASE 23 U/L (14-36); BILIRUBIN,DIRECT 0.2 mg/dL (0.0-0.4); BILIRUBIN,TOTAL 0.3 mg/dL (0.2-1.3); BLOOD UREA NITROGEN 12 mg/dL (7-20); CALCIUM 9.9 mg/dL (8.4-10.2); GLUCOSE 112 mg/dL (75-110); POTASSIUM 4.4 mmol/L (3.6-5.0); TOTAL PROTEIN 6.9 g/dL (6.3-8.2)
[2020-09-25 12:40] LABS: APPEARANCE,URINE CLEAR; BILIRUBIN,URINE NEGATIVE (NEGATIVE); COLOR,URINE STRAW; GLUCOSE, URINE NEGATIVE (NEGATIVE); KETONES,URINE NEGATIVE (NEGATIVE); LEUKOCYTE ESTERASE,URINE NEGATIVE (NEGATIVE); NITRITE,URINE NEGATIVE (NEGATIVE); PROTEIN,URINE NEGATIVE (NEGATIVE); URINE SPECIFIC GRAVITY 1.009; UROBILINOGEN,URINE NEGATIVE mg/dL (<2.0)
[2020-09-25 12:41] LABS: CARBON DIOXIDE 30 mmol/L (22-30); CHLORIDE 105 mmol/L (98-107)
[2020-09-25 12:53] LABS: ANION GAP 3 (5-19)
--- NOTE | 2020-09-25 13:23 | ER Document Report ---
ED GI/ - General Chief Complaint: Abdominal Pain Stated Complaint: BACK PAIN,RIGHT FLANK PAIN Time Seen by Provider: 09/25/20 11:32 Primary Care Provider: [facility] [Provider Group] - Follow up as needed [facility] [Provider Group] - Follow up tomorrow Mode of Arrival: Ambulatory Information source: Patient Notes: Patient presents complaining of right flank pain that does wrap around to right side of abdomen that started about 4 days ago. Patient states pain initially was off and on but now is constant achiness. Patient denies any fever, nausea, vomiting or diarrhea. Patient denies any cough or cold symptoms. TRAVEL OUTSIDE OF THE [place] IN LAST 30 DAYS: No - HPI Patient complains to provider of: Abdominal pain, Flank pain. No: Vomiting Onset: Other - 4 days Timing/Duration: Persistent Quality of pain: Achy Pain Level: 3 Location: RLQ, Right flank Vaginal bleeding (Compared to normal period): None Associated symptoms: denies: Dysuria, Fever, Loss of appetite, Nausea, Syncope, Urinary hesitancy, Urinary frequency, Urinary retention, Urinary urgency, Vaginal discharge, Vomiting Exacerbated by: Movement Relieved by: Denies Similar symptoms previously: No Recently seen / treated by doctor: No - Related Data Allergies/Adverse Reactions: levofloxacin [From Levaquin] Allergy (Verified 04/29/20 10:41) levothyroxine Allergy (Verified 04/29/20 10:41) morphine Allergy (Verified 04/29/20 10:41) Sulfa (Sulfonamide Antibiotics) Allergy (Verified 04/29/20 10:41) Home Medications: buspirone 15mg BID, visteril 25mg qhs Past Medical History - General Information source: Patient - Social History Smoking Status: Current Every Day Smoker Chew tobacco use (# tins/day): No Frequency of alcohol use: Occasional Drug Abuse: None Occupation: from home Family History: Reviewed & Not Pertinent, Malignancy - Father - lymphoma - Past Medical History Cardiac Medical History: Reports: Hx Hypercholesterolemia Pulmonary Medical History: Reports: Hx COPD Endocrine Medical History: Reports: Hx Hypothyroidism, Other - Red nodule Renal/ Medical History: Denies: Hx Peritoneal Dialysis Psychiatric Medical History: Reports: Hx Anxiety Past Surgical History: Reports: Hx Abdominal Surgery, Hx Cholecystectomy, Hx Orthopedic Surgery Review of Systems - Review of Systems Constitutional: No symptoms reported. denies: Fever EENT: No symptoms reported Cardiovascular: No symptoms reported. denies: Chest pain Respiratory: No symptoms reported. denies: Cough, Short of breath Gastrointestinal: Abdominal pain. denies: Diarrhea, Nausea, Vomiting Genitourinary: Flank pain. denies: Dysuria, Hematuria Female Genitourinary: No symptoms reported. denies: Vaginal discharge, Vaginal bleeding Musculoskeletal: Back pain Skin: No symptoms reported Hematologic/Lymphatic: No symptoms reported Neurological/Psychological: No symptoms reported Physical Exam - Vital signs Vitals: Temp Pulse Resp BP Pulse Ox 98.9 F 89 16 145/90 H 98 09/25/20 11:24 09/25/20 11:24 09/25/20 11:24 09/25/20 11:24 09/25/20 11:24 - Notes Notes: PHYSICAL EXAMINATION: GENERAL: Well-appearing and in no acute distress. HEAD: Atraumatic, normocephalic. EYES: sclera anicteric, conjunctiva are normal. ENT: nares patent. Moist mucous membranes. NECK: Normal range of motion, supple without lymphadenopathy LUNGS: CTAB and equal. No wheezes rales or rhonchi. HEART: Regular rate and rhythm without murmurs ABDOMEN: Morbidly obese, soft, redness to right middle and lower quadrants, normal bowel sounds, no guarding. EXTREMITIES: Normal range of motion, no pitting edema. No cyanosis. BACK: No midline tenderness, no step-off or deformity. right CVA tenderness NEUROLOGICAL: Cranial nerves grossly intact. Normal speech. Normal gait. PSYCH: Normal mood, normal affect. SKIN: Warm, Dry, normal turgor, no rashes or lesions noted - Genitourinary External exam: Normal Speculum exam: Vaginal discharge - minimal white adherent Vaginal bleeding: None Bimanuel exam: Normal. No: Cervical motion tender, Adnexal tenderness Course - Re-evaluation Re-evalutation: 09/25/20 16:[address] Robbins regarding patient presentation and ultrasound and CT report findings. Patient without any inflammatory changes noted on either ultrasound or CT scan. Patient without any fever or leukocytosis. Patient has findings worrisome for possible hydrosalpinx on ultrasound. Appendix was not visualized on CT scan although no inflammatory changes were noted. 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 09/25/20 16:[address] Tomlinson regarding patient's presentation and diagnostic evaluation today. She does recommend placing patient on doxycycline and having her follow-up in the office for further evaluation. - Vital Signs Vital signs: Temp Pulse Resp BP Pulse Ox 98.7 F 86 17 132/86 H 98 09/25/20 16:13 09/25/20 16:13 09/25/20 16:13 09/25/20 16:13 09/25/20 16:13 - Laboratory Results Result Diagrams: 09/25/20 12:00 09/25/20 12:00 Laboratory Results Interpreted: 09/25/20 12:00 Anion Gap 3 L Glucose 112 H 09/25/20 19:05 Labs- All tests 24 hr 09/25/20 09/25/20 09/25/20 12:00 12:00 12:00 WBC 7.2 RBC 5.01 Hgb 14.8 Hct 44.5 MCV 89 MCH 29.5 MCHC 33.2 RDW 14.0 Plt Count 212 Lymph % (Auto) 37.9 [place] % (Auto) 7.9 Eos % (Auto) 2.9 Baso % (Auto) 1.3 Absolute Neuts (auto) 3.6 Absolute Lymphs (auto) 2.7 Absolute Monos (auto) 0.6 Absolute Eos (auto) 0.2 Absolute Basos (auto) 0.1 Seg Neutrophils % 50.0 Sodium 138.2 Potassium 4.4 Chloride 105 Carbon Dioxide 30 Anion Gap 3 L BUN 12 Creatinine 0.73 Est GFR ( Amer) > 60 Est GFR (MDRD) Non-Af > 60 Glucose 112 H Calcium 9.9 Total Bilirubin 0.3 Direct Bilirubin 0.2 Neonat Total Bilirubin Not Reportable Neonat Direct Bilirubin Not Reportable Neonat Indirect Bili Not Reportable AST 23 ALT 18 Alkaline Phosphatase 89 Total Protein 6.9 Albumin 4.0 Lipase 103.2 Urine Color STRAW Urine Appearance CLEAR Urine pH 7.0 Ur Specific Linch 1.009 Urine Protein NEGATIVE Urine Glucose (UA) NEGATIVE Urine Ketones NEGATIVE Urine Blood NEGATIVE Urine Nitrite NEGATIVE Urine Bilirubin NEGATIVE Urine Urobilinogen NEGATIVE Ur Leukocyte Esterase NEGATIVE Urine WBC (Auto) 1 Urine RBC (Auto) 1 Urine Bacteria (Auto) TRACE Squamous Epi Cells Auto 1 Urine Mucus (Auto) RARE Urine Ascorbic Acid NEGATIVE Trichomonas (Wet Prep) Vaginal WBC Vaginal Yeast Chlamydia DNA (PCR) N.gonorrhoeae DNA (PCR) 09/25/20 09/25/20 15:15 15:15 WBC RBC Hgb Hct MCV MCH MCHC RDW Plt Count Lymph % (Auto) [place] % (Auto) Eos % (Auto) Baso % (Auto) Absolute Neuts (auto) Absolute Lymphs (auto) Absolute Monos (auto) Absolute Eos (auto) Absolute Basos (auto) Seg Neutrophils % Sodium Potassium Chloride Carbon Dioxide Anion Gap BUN Creatinine Est GFR ( Amer) Est GFR (MDRD) Non-Af Glucose Calcium Total Bilirubin Direct Bilirubin Neonat Total Bilirubin Neonat Direct Bilirubin Neonat Indirect Bili AST ALT Alkaline Phosphatase Total Protein Albumin Lipase Urine Color Urine Appearance Urine pH Ur Specific Linch Urine Protein Urine Glucose (UA) Urine Ketones Urine Blood Urine Nitrite Urine Bilirubin Urine Urobilinogen Ur Leukocyte Esterase Urine WBC (Auto) Urine RBC (Auto) Urine Bacteria (Auto) Squamous Epi Cells Auto Urine Mucus (Auto) Urine Ascorbic Acid Trichomonas (Wet Prep) NO TRICHOMONAS SEEN Vaginal WBC FEW WBCS SEEN Vaginal Yeast NO YEAST SEEN Chlamydia DNA (PCR) NOT DETECTED N.gonorrhoeae DNA (PCR) NOT DETECTED Critical Laboratory Results Reviewed: No Critical Results - Radiology Results Critical Radiology Results Reviewed: No Critical Results Discharge - Discharge Clinical Impression: Flank pain, Hydrosalpinx Abdominal pain Qualifiers: Abdominal location: unspecified location Qualified Code(s): R10.9 - Unspecified abdominal pain Condition: Stable Disposition: HOME, SELF-CARE Instructions: Abdominal Pain ([facility]), Doxycycline ([facility]), Flank Pain ([facility]) Additional Instructions: Return immediately for any new or worsening symptoms: Fever, worsening pain, vomiting or any concerning new symptoms Followup with your primary care provider, call tomorrow to make a followup appointment Follow up with pediatric ophthalmologist, call the office tomorrow to make a follow-up appointment. Prescriptions: Doxycycline Hyclate 100 mg PO BID #20 tablet.dr Pearsonroxen [Naprosyn 250 Nmg Tablet] 1 tab PO BID #14 tablet Referrals: [facility] [Provider Group] - Follow up as needed [facility] [Provider Group] - Follow up tomorrow
--- NOTE | 2020-09-25 14:48 | RADIOLOGY REPORT (SQ) ---
EXAM DESCRIPTION: CT ABD/PELVIS WITH IV ORAL IMAGES COMPLETED DATE/TIME: 09/25/2020 2:28 pm REASON FOR STUDY: RLQ abd pain, R flank pain x 3d COMPARISON: None. TECHNIQUE: CT scan of the abdomen and pelvis performed using helical scanning technique with dynamic intravenous contrast injection. No oral contrast. Images reviewed with lung, soft tissue, and bone windows. Reconstructed coronal and sagittal MPR images reviewed. Delayed images for evaluation of the urinary system also acquired. All images stored on PACS. All CT scanners at this facility use dose modulation, iterative reconstruction, and/or weight based d osing when appropriate to reduce radiation dose to as low as reasonably achievable (ALARA). [facility]: Dose Right [facility]: CareDose [facility]: Dose Right [facility]: Teradose 4D [facility]: Thalmic Labs CONTRAST TYPE AND DOSE: contrast/concentration: Isovue 350.00 mmol/ml; Total Contrast Delivered: 100 .0 ml; Total Saline Delivered: 45.1 ml RENAL FUNCTION: GFR > 60. RADIATION DOSE: CT Rad equipment meets quality standard of care and radiation dose reduction techniq ues were employed. CTDIvol: 18.2 - 20.7 mGy. DLP: 2060 mGy-cm.. LIMITATIONS: None. FINDINGS: LOWER CHEST: No significant findings. No nodules or infiltrates. LIVER: Normal size. No masses. No dilated ducts. SPLEEN: Normal size. No focal lesions. PANCREAS: No masses. No significant calcifications. No adjacent inflammation or peripancreatic fluid collections. Pancreatic duct not dilated. GALLBLADDER: Surgically absent. ADRENAL GLANDS: No significant masses or asymmetry. RIGHT KIDNEY AND URETER: No solid masses. No significant calcifications. No hydronephrosis or hyd roureter. LEFT KIDNEY AND URETER: No solid masses. No significant calcifications. No hydronephrosis or hydr oureter. AORTA AND VESSELS: No aneurysm. No dissection. Renal arteries, SMA, celiac without stenosis. RETROPERITONEUM: No retroperitoneal adenopathy, hemorrhage or masses. BOWEL AND PERITONEAL CAVITY: No masses or inflammatory changes. No free fluid or peritoneal masses. APPENDIX: Not visualized. No inflammatory change in the right lower quadrant. PELVIS: No mass. No free fluid. Normal bladder. ABDOMINAL WALL: Fat containing umbilical hernia. BONES: No significant or acute findings. OTHER: No other significant finding. IMPRESSION: No acute findings. TECHNICAL DOCUMENTATION: JOB ID: [id number] Quality ID # [id number]: Final reports with documentation of one or more dose reduction techniques (e.g., Au tomated exposure control, adjustment of the mA and/or kV according to patient size, use of iterative reconstruction technique) 2010 [employer]- All Rights Reserved Reading location - IP/workstation name: [email or web address]
--- NOTE | 2020-09-25 15:01 | RADIOLOGY REPORT (SQ) ---
EXAM DESCRIPTION: U/S NON OB PEL TV W/DOPPLER IMAGES COMPLETED DATE/TIME: 09/25/2020 2:05 pm REASON FOR STUDY: R pelvic pain x 3d, hx of R ovarian cyst COMPARISON: None. TECHNIQUE: Dynamic and static grayscale images acquired of the pelvis via transvaginal approach and recorded on PACS. Additional selected color Doppler and spectral images recorded. LIMITATIONS: None. FINDINGS: UTERUS: Contour normal. No mass. ENDOMETRIAL STRIPE: No focal or generalized thickening. No masses. CERVIX: No nabothian cysts. RIGHT OVARY AND DOPPLER: Normal size. Tubular fluid-filled structure measuring about 2 cm in diamete r most likely hydrosalpinx. No inflammatory change. No worrisome masses. Normal arterial vascular f low without evidence for torsion. LEFT OVARY AND DOPPLER: Normal size. No worrisome masses. Normal arterial vascular flow without evide nce for torsion. FREE FLUID: None noted. OTHER: No other significant finding. IMPRESSION: Tubular structure to right of midline most likely hydrosalpinx. TECHNICAL DOCUMENTATION: JOB ID: [id number] [employer]- All Rights Reserved Rev-01/22 Reading location - IP/workstation name: [email or web address]
[2020-09-25] MEDS ORDERED: FENTANYL CITRATE INJ/PF 100 MCG/2 ML AMPUL IV ONE (15:10)
[2020-09-25 15:39] LABS: T.VAGINALIS (WET MOUNT) NO TRICHOMONAS SEEN; WBCS (WET MOUNT) FEW WBCS SEEN; YEAST (WET MOUNT) NO YEAST SEEN
[2020-09-25 16:13] VITALS: BP 132/86
[2020-09-25] MEDS ORDERED: DOXYCYCLINE HYCLATE 100 MG TABLET PO ONE (16:19)
[2020-09-25 17:08] LABS: CHLAM PCR NOT DETECTED (NOT DETECT)
== END 2020-09-25 16:59 | disposition home or self-care (01) ==
LOC: ER 11:16
DX: N70.11 Chronic salpingitis (principal); R10.9 Unspecified abdominal pain; R10.31 Right lower quadrant pain; F17.200 Nicotine dependence, unspecified, uncomplicated; J44.9 Chronic obstructive pulmonary disease, unspecified; F41.9 Anxiety disorder, unspecified; Z79.899 Other long term (current) drug therapy; Z88.1 Allergy status to other antibiotic agents; Z88.8 Allergy status to other drugs, medicaments and biological substances; Z88.6 Allergy status to analgesic agent; Z88.5 Allergy status to narcotic agent; Z88.2 Allergy status to sulfonamides; M54.9 Dorsalgia, unspecified
CPT/HCPCS: 99285; 96374; 36415; 87210; 83690; 85025; 80053; 81001; 87491; 87591; 76830; 93976; 74177; J3010